=== PATIENT | male | born 1945 | race Caucasian/White ===

== ENCOUNTER 2016-11-27 01:21 | Inpatient (IN) ==
--- NOTE | 2016-11-27 02:33 | Emergency Department Note ---
Alan Null Emily, am scribing for, and in the presence of, Freddy Hidalgo MD 02: 17. Rocky Null Charles R, MD, personally performed the services described in this documentation, ascribed by Dionne Phillips in my presence, and it is both accurate and complete . Arrival - Arrival Chief Complaint: Arrhythmia/Palpitations Stated Complaint: Palpitations ED Nursing Triage Note: C/C Transfer from [facility] ER for SVT. Pt was given Adenocard 6mg and converted. Pt has history of WPW. Pt was also given ASA 325mg, Zofran 4mg, Lovenox 100mg. 18G L hand. Pt denies chest pain Mode of Arrival: Stretcher Limitations: No Limitations Source: Patient Time Seen by Provider: 11/27/16 01:52 - History of Present Illness HPI Narrative: Pt is a 71 y/o male who was transferred from [facility] ER for SVT that happened hours ago. Pt was given Adenocard 6mg and converted. Pt has history of Patsy Parkinson White syndrome. Pt was also given ASA 325mg, Zofran 4mg, Lovenox 100mg TUBE BALANCER. 18G L hand. Pt denies chest pain or tobacco usage. Pt's last visit for cardiac was at [facility] with Dr. Good but no heart cath and only talk of angioplasty. Onset (ago): hour(s) Consistency: constant Severity: mild, moderate Severity scale (1-10): 4 Quality: other (racing) Allergies/Adverse Reactions: Allergies Allergy/AdvReac Type Severity Reaction Status Date / Time No Known Allergies Allergy Unverified 11/27/16 01:34 Review of System - Review of System 12 point system: reviewed and no additional remarkable complaints except as stated - Review of System Constitutional: Absent: chills, fever Head/Ears/Nose/Throat: Absent: nasal drainage Respiratory: Absent: cough, respiratory distress, wheezing Cardiovascular: Present: palpitations. Absent: chest pain, edema, syncope Gastrointestinal: Absent: abdominal pain, nausea, vomiting Musculoskeletal: Absent: arm pain, back pain, leg pain, neck pain Skin: Absent: rash Neurological: Absent: headache, numbness, paresthesias, abnormal gait Psychiatric: Absent: anxiety Medical,Surgical,& Family Hx - Medical History Cardio: History of: Cardiac Dysrhythmia (WPW, SVT), CAD, Hypertension Endocrine: History of: Dyslipidemia - Surgical History Surgical History: noncontributory - Family History Family History: noncontributory - Social History Smoking Status: Never smoker Frequency of Alcohol Use: None Type of Drug Use: None Marital Status: Lives With:: Spouse Functional capacity: independent ambulation Exam Vital Signs: Vital Signs Temperature 97.5 F L 11/27/16 01:24 Pulse Rate 80 11/27/16 01:24 Respiratory Rate 16 11/27/16 01:24 Blood Pressure 116/77 11/27/16 01:24 O2 Sat by Pulse Oximetry 95 11/27/16 01:24 - General General appearance: alert, in no apparent distress - Head Head exam: Present: atraumatic, normocephalic - Eye Eye exam: Present: PERRL, EOMI - ENT ENT exam: Present: mucous membranes moist. Absent: mucous membranes dry - Neck Neck exam: Present: full ROM. Absent: tenderness - Chest Chest inspection: Present: symmetric chest wall rise. Absent: tenderness - Respiratory Respiratory exam: Present: normal lung sounds bilaterally. Absent: respiratory distress - Cardiovascular Cardiovascular exam: Present: irregular rhythm (slight arrhythmia), normal heart sounds - Abdominal Exam Abdominal exam: Present: soft, normal bowel sounds. Absent: tenderness - Extremities Exam Extremities exam: Present: full ROM. Absent: tenderness, pedal edema - Neurological Exam Neurological exam: Present: alert, oriented X3, CN II-XII intact. Absent: motor sensory deficit - Psychiatric Psychiatric exam: Present: normal affect - Skin Skin exam: Present: warm, dry Course - Consultations Consultation #1: Dr. Owen will admit patient Time: 02:32 Disposition Clinical Impression: Palpitations, Supraventricular tachycardia, History of Zqify-Kimbhtlze-Luyen ( WPW) syndrome Case discussed with: patient, patient's family Disposition: Still a Patient Condition: Stable Time of Disposition: 02:32
[2016-11-27] MEDS ORDERED: MAGNESIUM SULF RIDER 4 GM in PREMIX 1 EACH IV PRN (02:36)
[2016-11-27] MEDS ORDERED: ONDANSETRON 4 MG/2 ML VIAL IV PRN (02:36)
[2016-11-27] MEDS ORDERED: MORPHINE 2 MG/1 ML SYRINGE IV PRN (02:36)
[2016-11-27] MEDS ORDERED: GLUCAGON 1 MG VIAL IM PRN ×2 (02:36→16:53)
[2016-11-27] MEDS ORDERED: MAGNESIUM SULF RIDER 2 GM in PREMIX 1 EACH IV PRN (02:36)
[2016-11-27] MEDS ORDERED: DEXTROSE 50% 25 GM/50 ML VIAL IV PRN ×2 (02:36→16:53)
[2016-11-27] MEDS ORDERED: SODIUM CHLORIDE 0.9% 1,000 ML IV SCH (03:00)
[2016-11-27 04:57] LABS: Basophils # 0.1 10*3/uL (0.0-0.2); Basophils % 0.8 % (0.0-0.8); Eosinophils # 0.3 10*3/uL (0.0-0.87); Eosinophils % 3.9 % (0.00-10.9); Hemoglobin 14.9 GM/DL (14.0-18.0); Immature Granulocytes % 0.2 %; Immature Granulocytes Absolute 0.02 #; Lymphocytes # 3.1 10*3/uL (1.4-4.0); Lymphocytes % 34.8 % (21.2-54.2); Mean Corpuscular HGB Conc 33.9 GM/DL (32-36); Mean Corpuscular Hemoglobin 29 PG (27-34); Mean Corpuscular Volume 86.3 FL (87-102); Mean Platelet Volume 9.6 FL (9.6-12.0); Monocytes # 0.8 10*3/uL (0.11-0.8); Monocytes % 9.1 % (1.7-12.7); Neutrophils # 4.5 10*3/uL (1.4-7.4); Neutrophils % 51.2 % (38.7-73.9); Platelet Count 236 T/CUMM (130-400); Red Cell Distribution Width 12.8 % (9.3-17.3); White Blood Count 8.8 T/CUMM (4-12)
[2016-11-27 05:41] LABS: Albumin 3.7 G/DL (3.4-5.0); Bilirubin,Total 0.6 MG/DL (0.2-1.0); Magnesium 2.1 MG/DL (1.8-2.4); Osmolality,Calculated 291.8 MOS/KG (273-304); Potassium 4.5 MMOL/L (3.5-5.1); Risk Ratio 4.78; Thyroid Stimulating Hormone 3.26 uIU/ml (0.358-3.74); Total Protein 6.8 G/DL (6.4-8.3); VLDL CHOLESTEROL 45.2 MG/DL
[2016-11-27 05:42] LABS: CKMB % 4.3 %
[2016-11-27 05:48] LABS: Troponin I Only 1.15 NG/ML (0.00-0.045)
--- NOTE | 2016-11-27 07:36 | XRay Report ---
XR chest 1V portable Indication: Shortness of breath Comparison: Chest x-ray 11/26/2016 Technique: Portable AP chest was performed. Findings: Heart size is normal. Pulmonary vasculature appears within normal limits. No significant abnormality of the mediastinal contours demonstrated. Lungs are clear. Bones and soft tissues demonstrate no significant abnormalities. Impression: 1. No evidence of acute pathology. 11/27/2016 7:33 AM PROCEDURE INTERPRETED AT [facility] DEPARTMENT OF RADIOLOGY Final Report Signed by: Dr. Boogie Reynolds
[2016-11-27] MEDS: PANTOPRAZOLE 40 MG TABLET PO SCH (08:29)
[2016-11-27] MEDS: ASPIRIN EC 81 MG TABLET PO SCH (08:29)
--- NOTE | 2016-11-27 08:42 | EKG Report ---
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
--- NOTE | 2016-11-27 09:10 | Cardiology History & Physical ---
Assessment and Plan - Time spent with patient Time spent with patient: Greater than 30 minutes (due to assessment, plan, and documentation) (1) Supraventricular tachycardia Status: Acute Assessment and plan: See plan of care listed below. Current Visit: Yes (2) History of Sqflr-Wpkgrvqni-Odqqf (WPW) syndrome Status: Chronic Assessment and plan: See plan of care listed below. Current Visit: Yes (3) Hypertension Status: Chronic Assessment and plan: See plan of care listed below. Current Visit: Yes (4) HLD (hyperlipidemia) Status: Chronic Assessment and plan: See plan of care listed below. Current Visit: Yes (5) Diabetes mellitus Status: Chronic Assessment and plan: See plan of care listed below. Current Visit: Yes (6) GERD (gastroesophageal reflux disease) Status: Chronic Assessment and plan: See plan of care listed below. Current Visit: Yes (7) Arthritis Status: Chronic Assessment and plan: See plan of care listed below. Current Visit: Yes (8) Former smoker Status: Chronic Assessment and plan: See plan of care listed below. Current Visit: Yes History of Present Illness Chief complaint: SVT History of present illness: Gluing Machine Operator: none Mr. Malcolm is a 71 year old male with history of Patsy-Parkinson- White syndrome, hypertension, hyperlipidemia, diabetes, GERD, and arthritis. Risk factors are significant for: Hypertension, hyperlipidemia, diabetes, age, sedentary lifestyle, family history of CAD. He is a former smoker having quit in the 1970s. He has not routinely followed by cardiology and tells me the last time he saw a side show entertainer was back in the 80s or 90s. He tells me that he saw a side show entertainer at [facility] in the 1980s and last saw a side show entertainer at [facility] approximately 10 years ago. Mr. Malcolm was transferred to our facility from [facility] in [facility] for further evaluation of his SVT. Mr. Malcolm tells me that every couple months he will have an episode of palpitations that will last a few minutes and dissipate. Yesterday, he went to the dentist to have a crown replaced and developed palpitations. He told the dentist and was given nitrous oxide and he states this calmed down his palpitations for a while. He tells me that around 9:00 last night, his palpitations returned and he decided to seek further evaluation at his local emergency room. Upon arrival to [facility], he was noted to be in SVT with heart rate of 193. He was given 6 mg of Adenocard and converted to normal sinus rhythm. He denies any chest pain, shortness of breath, diaphoresis, nausea, vomiting, dizziness, lightheadedness, or syncope. He reports his symptoms have never been bad enough for him to go to the emergency room before this. He states he did gets a little dizzy whenever he was given the Adenocard but this subsided once his heart rhythm went back to normal. Home medicines include: Baby aspirin, Prilosec 20 mg daily, metformin 500 mg daily, simvastatin 20 mg p.o. daily, Celebrex 100 mg p.o. daily, and an unknown blood pressure pill that he takes every day. Initial troponin at the outlying facility was 0.17, CK-MB 6.5, CPK 197. Troponin at our facility was 1.15, CK- MB 8.1, CPK 190. Creatinine is 1.0. Lipid panel revealed: Triglycerides 226, cholesterol 153, LDL 96, HDL 32. Assessment/plan: 1. SVT - He has been in normal sinus rhythm since arriving in our facility. He has had a few occasional PVCs and PACs per review of his bargeman. He is currently on no zach blocking agents or antiarrhythmics. We will start him on a low dose beta eren and consult Dr. Leahy with Electrophysiology. 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 Previously underwent stress testing at [facility] in the 1980s which was negative. 3. Hypertension - Currently well controlled. We will continue to monitor and adjust accordingly. 4. Hyperlipidemia - Triglycerides 226, cholesterol 153, LDL 96, HDL 32. Will increase simvastatin and add Omega3 supplement. 5. Diabetes mellitus - Will start sliding scale insulin with Accuchecks ACHS and monitor. 6. GERD - Continue PPI. 7. Arthritis - Continue Celebrex. 8. Former tobacco use - Quit in . Dr. Owen to follow with further plan and addendum. Allergies Allergy/AdvReac Type Severity Reaction Status Date / Time No Known Allergies Allergy Unverified 11/27/16 01:34 Review of systems: - Constitutional: Present: As per HPI. Absent: anorexia, chills, daytime sleepiness, excessive sweating, fever(s), frequent falls, headache(s), increased appetite, lethargy, malaise, night sweats, stops breathing during sleep, weakness, weight gain, weight loss, fatigue. - EENT Eyes: Present: As per HPI. Absent: blurry vision, diplopia, loss of vision Ears: Present: As per HPI. Absent: decreased hearing, ear discharge, ear pain Nose, mouth and throat: Present: As per HPI. Absent: dysphagia, epistaxis, headache(s), hoarseness, lip swelling, nasal congestion, neck mass, neck pain, sinus pressure, sore throat, throat swelling, tongue swelling, vertigo - Cardiovascular: Present: palpitations, as per HPI. Absent: chest pain at rest , chest pain with activity, dyspnea, dyspnea on exertion, edema, claudication, diaphoresis, radiating jaw, neck or arm pain, lightheadedness, orthopnea, PND - Respiratory: Present: as per HPI. Absent: dyspnea, dyspnea on exertion, cough , hemoptysis, wheezing, snoring, pain on inspiration - Gastrointestinal: Present: As per HPI. Absent: abdominal pain, bloating, change in bowel habits, constipation, diarrhea, heartburn, hematemesis, hematochezia, loose stools, melena, nausea, vomiting - Genitourinary: Present: As per HPI. Absent: difficulty urinating, dysuria, flank pain, hematuria, nocturia, urinary frequency, urinary incontinence - Musculoskeletal: Present: As per HPI. Absent: arthralgias, back pain, joint swelling, limited range of motion, muscle cramps, muscle weakness, myalgias - Neurological: Present: As per HPI. Absent: abnormal gait, abnormal speech, behavioral changes, confusion, convulsions, disequilibrium, dizziness, focal weakness, frequent falls, headache(s), memory loss, numbness, paresthesias, radicular pain, syncope, tremor(s) - Psychiatric: Present: As per HPI. Absent: anxiety, confusion, depression, panic attacks - Endocrine: Present: As per HPI. Absent: cold intolerance, fatigue, heat intolerance, polydipsia, polyphagia - Hematologic/Lymphatic: Present: As per HPI. Absent: easy bleeding, easy bruising, lymphadenopathy Medical,Surgical,& Family Hx - Medical History Cardio: History of: Cardiac Dysrhythmia (WPW, SVT), CAD, Hypertension Endocrine: History of: Diabetes Mellitus (NIDDM), Dyslipidemia Gastrointestinal: History of: GERD - Family History Family History: Reports;: Family Heart Disease - Social History Smoking Status: Former smoker (quit in .) Frequency of Alcohol Use: None Type of Drug Use: None Marital Status: Lives With:: Spouse Functional capacity: independent ambulation Cardiology Physical Exam - Constitutional Vitals: Vital Signs Temp Pulse Resp BP Pulse Ox 97.7 F 71 14 105/72 95 11/27/16 07:15 11/27/16 07:15 11/27/16 07:15 11/27/16 07:15 11/27/16 01:24 Intake and Output 11/26/16 11/27/16 11/27/16 22:59 06:59 14:59 Other: Weight 212 lb 6.4 oz Exam: General appearance: Pleasant and cooperative. Normal weight, no acute distress. - Head Head exam: Present: normal inspection, normocephalic, atraumatic. Absent: hematoma, laceration - Eye Eye exam: Present: EOMI. Absent: conjunctival injection, nystagmus, periorbital swelling, scleral icterus, laceration to eyelids Pupils: Present: PERRL. Absent: constricted, dilated, fixed, irregular, unequal - ENT ENT exam: Present: normal exam, normal external ear exam - Neck Neck exam: Present: normal inspection. Absent: lymphadenopathy, meningismus, tenderness, thyromegaly - Respiratory Respiratory exam: Present: clear to auscultation bilaterally. Absent: accessory muscle use, chest wall tenderness - Cardiovascular Cardiovascular exam: Present: regular rate and rhythm. Absent: carotid bruit, gallop, JVD, rubs, murmur - GI/Abdominal GI/Abdominal exam: Present: normal bowel sounds, soft. Absent: distended, firm , guarding, hernia, mass, tenderness, rebound. - Extremities Exam Extremities exam: Present: normal inspection, normal capillary refill. Upper extremity pulses 2+. Lower extremity pulses 2+. Absent: calf tenderness, edema -Musculoskeletal Exam Musculoskeletal: Present: No Fluid Collection, No Pain, Normal Range of Motion - Back Exam Back exam: Present: normal inspection. Absent: muscle spasm, vertebral tenderness - Neurological Exam Neurological exam: Present: alert, oriented X3, grossly intact without resting or essential tremor - Psychiatric Psychiatric exam: Present: normal affect, normal mood - Skin Skin exam: Present: normal color, warm, dry, intact. Absent: cyanosis, diaphoretic, rash, urticaria Result/EKG - Labs CBC & BMP: 11/27/16 04:33 11/27/16 04:33 Lab Results: I have reviewed the past 24 hour labs Labs: Laboratory Results - last 24 hr 11/27/16 11/27/16 11/27/16 04:33 04:33 04:33 WBC 8.8 RBC 5.10 Hgb 14.9 Hct 44.0 MCV 86.3 L MCH 29 MCHC 33.9 RDW 12.8 Plt Count 236 MPV 9.6 Neut % (Auto) 51.2 Lymph % (Auto) 34.8 [place] % (Auto) 9.1 Eos % (Auto) 3.9 Baso % (Auto) 0.8 Neut # (Auto) 4.5 Lymph # (Auto) 3.1 [place] # (Auto) 0.8 Eos # (Auto) 0.3 Baso # (Auto) 0.1 Immature Gran % 0.2 Nucleated RBC % 0.0 Immature Gran # 0.02 Nucleated RBCs # 0.00 Sodium 144 Potassium 4.5 Chloride 111 H Carbon Dioxide 24 Anion Gap 13.5 BUN 24 H Creatinine 1.00 GFR Calculation 96 BUN/Creatinine Ratio 24.00 H Glucose 128 H Calculated Osmolality 291.8 Calcium 9.0 Magnesium 2.1 Total Bilirubin 0.60 AST 38 H ALT 53 Alkaline Phosphatase 78 Total Creatine Kinase 190 CK-MB (CK-2) 8.1 H CK and CKMB Interp 4.3 Troponin I 1.150 H B-Natriuretic Peptide Total Protein 6.8 Albumin 3.7 Globulin 3.1 Albumin/Globulin Ratio 1.1 Triglycerides 226 H Cholesterol 153 LDL Cholesterol 96.0 VLDL Cholesterol 45.2 HDL Cholesterol 32 L Heart Disease Risk Ratio 4.78 TSH 3rd Generation 3.260 11/27/16 04:33 WBC RBC Hgb Hct MCV MCH MCHC RDW Plt Count MPV Neut % (Auto) Lymph % (Auto) [place] % (Auto) Eos % (Auto) Baso % (Auto) Neut # (Auto) Lymph # (Auto) [place] # (Auto) Eos # (Auto) Baso # (Auto) Immature Gran % Nucleated RBC % Immature Gran # Nucleated RBCs # Sodium Potassium Chloride Carbon Dioxide Anion Gap BUN Creatinine GFR Calculation BUN/Creatinine Ratio Glucose Calculated Osmolality Calcium Magnesium Total Bilirubin AST ALT Alkaline Phosphatase Total Creatine Kinase CK-MB (CK-2) CK and CKMB Interp Troponin I B-Natriuretic Peptide 153 H Total Protein Albumin Globulin Albumin/Globulin Ratio Triglycerides Cholesterol LDL Cholesterol VLDL Cholesterol HDL Cholesterol Heart Disease Risk Ratio TSH 3rd Generation - EKG EKG results: interpreted by me, sinus rhythm (with occasional PVC/PAC)
--- NOTE | 2016-11-27 11:18 | Electrophysiology Consultation ---
History of Present Illness - Data of Consult Patient: new to practice Consult date: 11/27/16 Requesting Physician: Anirudh Owen - Consult Narrative Reason for consult: SVT, WPW History of present illness: Mr. Malcolm is a 71 year old male, with history of palpitations, which started after he lifted the , after the [place] initially, these were infrequent, lasted for minutes. 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 Yesterday, he went to a dentist for crown placement and developed palpitations before. These were initially tolerable, he underwent the procedure, but the palpitations became worse, and then lasted for hours and he developed substernal chest discomfort. Eventually, he went to the emergency room and was diagnosed with irregular SVT at 195 beats I am. This probably transformed to sinus rhythm with IV adenosine. The SVT is narrow QRS, long RP, regular. His EKG currently shows normal UT interval, without manifest preexcitation. There are still diffuse report abnormalities, ST depression. The chest pain resolved. Initial cardiac biomarkers were borderline, troponin was 0.1. He is not having chest pain right now. He has otherwise no exertional limitation and is quite active. No syncope. There is history of hypertension, blood pressure was normal. Hyperlipidemia, with normal lipid panel. Also, history of type 2 diabetes mellitus, nonfasting blood sugar was mildly elevated on admission. CC: Anirudh Owen MD - Home Medications and Allergies Allergies/Adverse Reactions: Allergies Allergy/AdvReac Type Severity Reaction Status Date / Time No Known Allergies Allergy Unverified 11/27/16 01:34 Medical,Surgical,& Family Hx - Medical History Cardio: History of: Cardiac Dysrhythmia (WPW, SVT), CAD, Hypertension Endocrine: History of: Diabetes Mellitus (NIDDM), Dyslipidemia Gastrointestinal: History of: GERD - Family History Family History: Reports;: Family Heart Disease - Social History Smoking Status: Former smoker (quit in 1970s.) Frequency of Alcohol Use: None Type of Drug Use: None 12 point system: reviewed and no additional remarkable complaints except as stated Exam - Constitutional Vitals: Period Temp Pulse Resp BP Sys/Renee Pulse Ox Last 24 Hr 97.0 F-97.7 F 70-80 14-18 105-116/66-77 95 General appearance: normal weight, no acute distress, over weight - Head Head exam: Present: normal inspection, normocephalic - Eye Eye exam: Absent: conjunctival injection, scleral icterus Pupils: Absent: dilated - ENT ENT exam: Present: normal external ear exam - Neck Neck exam: Present: normal inspection - Respiratory Respiratory exam: Present: clear to auscultation bilaterally - Cardiovascular Cardiovascular exam: Present: regular rate and rhythm, systolic murmur - GI/Abdominal GI/Abdominal exam: Present: normal bowel sounds. Absent: distended - Extremities Exam Extremities exam: Present: normal inspection, normal capillary refill. Absent: edema - Back Exam Back exam: Present: normal inspection - Neurological Exam Neurological exam: Present: alert, oriented X3 - Psychiatric Psychiatric exam: Present: normal affect, normal mood - Skin Skin exam: Present: normal color, warm. Absent: cyanosis Results - Labs CBC & BMP: 11/27/16 04:33 11/27/16 04:33 Lab Results: I have reviewed the past 24 hour labs Assessment and Plan (1) Supraventricular tachycardia Status: Acute Assessment and plan: 71-year-old male, with history of PSVT, suspected WPW, without manifest preexcitation his current EKG. Was admitted with persistent SVT, mild demand ischemia in context of SVT/RVR, lasting for hours. Otherwise, no exertional angina. Multiple CAD risk factors, hypertension, hyperlipidemia, mild type 2 diabetes mellitus, past smoker, positive family history. -Echo. -Stress test. Rule out CAD. Assess preexcitation with elevated heart rate. If he does have significant CAD, I suggest to proceed with LHC, before addressing his SVT. His heart rate was markedly elevated for hours, I suspect demand ischemia. -Discussed risks and benefits of management options for PSVT. We plan to proceed with EP study/ablation in conscious sedation Wednesday. -Unless he has significant CAD or CMP, over the weekend, I suggest to avoid CCB/ BB, to avoid interference with the EP study. -Keep on telemetry Current Visit: Yes (2) History of Gqklq-Cxijugnwr-Fnqtg (WPW) syndrome Status: Chronic Current Visit: Yes (3) Hypertension Status: Chronic Current Visit: Yes (4) HLD (hyperlipidemia) Status: Chronic Current Visit: Yes (5) Diabetes mellitus Status: Chronic Current Visit: Yes (6) GERD (gastroesophageal reflux disease) Status: Chronic Current Visit: Yes (7) Arthritis Status: Chronic Current Visit: Yes (8) Former smoker Status: Chronic Current Visit: Yes
[2016-11-27] MEDS: CARVEDILOL 3.125 MG TABLET PO SCH ×2 (11:22→20:51)
[2016-11-27 11:28] LABS: CKMB % 3.8 %
[2016-11-27 11:30] LABS: Troponin I Only 0.947 NG/ML (0.00-0.045)
--- NOTE | 2016-11-27 16:10 | Event Note ---
Patient underwent nuclear stress test without difficulty. THR achieved in Stage II of [place]oy Protocol. Patient was noted to have mild ST depression, but no other acute EKG changes. No chest pain, heaviness, or tightness. No dizziness, lightheadedness, or syncope. He did have mild WALLACE. Blood pressure responded appropriately. Patient now to nuclear medicine for final scan.
--- NOTE | 2016-11-27 17:31 | ECHO Report ---
Hernán Malcolm Exam Date: 11/27/2016 13:32 Referring Physician: Technologist: sathish Alexis ARDMS, RVT Age: 71 Ht (in): 71 Wt (lb): 212 Gender: M Exam Location: [facility] Echo Indications: Essential (primary) hypertension, Palpitations, Supraventriculartachycardia, GERD, Diabetes, Elevated troponin, WPW BP: 105 / 72 HR: 64 Rhythm: Sinus Technical Quality: IMPRESSIONS Normal left ventricular cavity size. Normal left ventricular wall thickness. Normal systolic function. Left ventricular ejection fraction is estimated at 60%. Normal diastolic function. No significant valvular abnormalities. MEASUREMENTS (Male / Female) Normal Values 2D ECHO LV Diastolic Diameter PLAX 4.3 cm 4.2 - 5.9 / 3.9 - 5.3 cm LV Systolic Diameter PLAX 3.4 cm LV Fractional Shortening PLAX 20.9 % IVS Diastolic Thickness 1.1 cm 0.6 - 1.0 / 0.6 - 0.9 cm LVPW Diastolic Thickness 1.2 cm 0.6 - 1.0 / 0.6 - 0.9 cm RV Internal Dim ED PLAX 3.9 cm Aortic Root Diameter 3.2 cm LA Systolic Diameter LX 4.1 cm 3.0 - 4.0 / 2.7 - 3.8 cm DOPPLER TR Peak Velocity 257.0 cm/s TR Peak Gradient 26.4 mmHg FINDINGS Left Ventricle Normal left ventricular cavity size. Normal left ventricular wall thickness. Normal systolic function. Left ventricular ejection fraction is estimated at 60%. Normal diastolic function. Right Ventricle The right ventricle is normal in size and function. Right Atrium The right atrium is normal in size. Left Atrium The left atrium is normal in size. Mitral Valve Morphologically normal mitral valve. Trace mitral valve regurgitation. Aortic Valve Structurally normal aortic valve, without stenosis or insufficiency. Tricuspid Valve Morphologically normal tricuspid valve. Trace tricuspid valve regurgitation. Tricuspid regurgitation velocities suggest a PAP of 36 mmHg. Pulmonic Valve Morphologically normal pulmonic valve without significant stenosis. There is no pulmonic regurgitation. Pericardium Normal pericardium without effusion. Aorta Normal ascending aorta dimension. Tulio Leahy (Electronically Signed) Final Date: 27 November 2016 16:50
[2016-11-27 19:18] LABS: CKMB % 3.2 %
[2016-11-27 19:19] LABS: Troponin I Only 0.686 NG/ML (0.00-0.045)
[2016-11-27] MEDS: ENOXAPARIN 40 MG/0.4 ML SYRINGE SUBCUT SCH (20:51)
[2016-11-28 05:56] LABS: Basophils # 0.1 10*3/uL (0.0-0.2); Basophils % 0.8 % (0.0-0.8); Eosinophils # 0.3 10*3/uL (0.0-0.87); Eosinophils % 3.9 % (0.00-10.9); Hematocrit 43.3 VOL% (42.0-52.0); Hemoglobin 14.9 GM/DL (14.0-18.0); Immature Granulocytes % 0.4 %; Immature Granulocytes Absolute 0.03 #; Lymphocytes # 2.8 10*3/uL (1.4-4.0); Lymphocytes % 33.3 % (21.2-54.2); Mean Corpuscular HGB Conc 34.4 GM/DL (32-36); Mean Corpuscular Hemoglobin 30 PG (27-34); Mean Corpuscular Volume 86.1 FL (87-102); Mean Platelet Volume 9.6 FL (9.6-12.0); Monocytes # 0.7 10*3/uL (0.11-0.8); Monocytes % 7.7 % (1.7-12.7); Neutrophils # 4.6 10*3/uL (1.4-7.4); Neutrophils % 53.9 % (38.7-73.9); Platelet Count 220 T/CUMM (130-400); Red Blood Count 5.03 MC/CUMM (3.8-5.5); Red Cell Distribution Width 12.7 % (9.3-17.3); White Blood Count 8.4 T/CUMM (4-12)
[2016-11-28 06:20] LABS: Calcium 8.5 MG/DL (8.5-10.1); Magnesium 2.1 MG/DL (1.8-2.4); Osmolality,Calculated 284.3 MOS/KG (273-304); Potassium 4.3 MMOL/L (3.5-5.1)
[2016-11-28] MEDS: PANTOPRAZOLE 40 MG TABLET PO SCH (09:29)
[2016-11-28] MEDS: CARVEDILOL 3.125 MG TABLET PO SCH (09:29)
[2016-11-28] MEDS: ASPIRIN EC 81 MG TABLET PO SCH (09:29)
--- NOTE | 2016-11-28 10:08 | EKG Report ---
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
--- NOTE | 2016-11-28 11:23 | Electrophysiology Progress Not ---
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 Was admitted with persistent SVT, mild demand ischemia in context of SVT/RVR, lasting for hours. Otherwise, no exertional angina. Multiple CAD risk factors, hypertension, hyperlipidemia, mild type 2 diabetes mellitus, past smoker, positive family history. No structural disease on echo, stress test showed no ischemia. Elevated troponin was likely due to demand ischemia, prominent RVR with SVT for hours. -Discussed risks and benefits of management options for symptomatic PSVT. -We will proceed with EP study/SVT ablation on Wednesday, in conscious sedation. -N.p.o. after midnight on Wednesday -Hold beta-eren Current Visit: Yes (2) History of Ndgjb-Hdirdzawi-Sunpl (WPW) syndrome Status: Chronic Current Visit: Yes (3) Hypertension Status: Chronic Current Visit: Yes (4) HLD (hyperlipidemia) Status: Chronic Current Visit: Yes (5) Diabetes mellitus Status: Chronic Current Visit: Yes (6) GERD (gastroesophageal reflux disease) Status: Chronic Current Visit: Yes (7) Arthritis Status: Chronic Current Visit: Yes (8) Former smoker Status: Chronic Current Visit: Yes Electrophysiology Subjective Interval history: He is feeling fine. Stress test showed no significant ischemia. No significant cardiomyopathy on echo. No arrhythmia on telemetry. Exam - Constitutional Vitals: Period Temp Pulse Resp BP Sys/Renee Pulse Ox Last 24 Hr 97.3 F-98.4 F 59-78 16-20 118-127/65-74 97-100 General appearance: normal weight, over weight - Head Head exam: Present: normal inspection, normocephalic - Eye Eye exam: Absent: conjunctival injection, scleral icterus Pupils: Absent: dilated - ENT ENT exam: Present: normal external ear exam - Neck Neck exam: Present: normal inspection - Respiratory Respiratory exam: Present: clear to auscultation bilaterally. Absent: accessory muscle use - Cardiovascular Cardiovascular exam: Present: regular rate and rhythm. Absent: JVD - GI/Abdominal GI/Abdominal exam: Present: normal bowel sounds. Absent: distended - Extremities Exam Extremities exam: Present: normal inspection, normal capillary refill. Absent: edema - Back Exam Back exam: Present: normal inspection - Neurological Exam Neurological exam: Present: alert, oriented X3 - Psychiatric Psychiatric exam: Present: normal affect, normal mood - Skin Skin exam: Present: normal color, warm. Absent: cyanosis Results - Labs CBC & BMP: 11/28/16 05:12 11/28/16 05:12 Lab Results: I have reviewed the past 24 hour labs
[2016-11-28] MEDS: POLYETHYLENE GLYCOL POWDER 17 GM PACK PO PRN (12:49)
--- NOTE | 2016-11-28 16:32 | Cardiology Progress Note ---
Assessment and Plan - Time spent with patient Time spent with patient: Greater than 30 minutes (1) Supraventricular tachycardia Status: Acute Assessment and plan: Echo and stress test show structurally normal heart--he does not need a heart catheterization/coronary angiogram at this point Will be for attempted ablation of non-manifest [at least at this point it seems to be concealed ]bypass tract on Wednesday We will give a trial of some Metamucil and MiraLAX today Can use off stool softeners if needed Probably his mild troponin rise was related to increased demand/supply mismatch from RVR with SVT I conferred care with Dr. Staley, his contracting executive I discussed the plan with the patient and he agrees with the plan Current Visit: Yes (2) Constipation Status: Acute Current Visit: Yes (3) Palpitations Status: Acute Current Visit: Yes (4) Diabetes mellitus Status: Chronic Current Visit: Yes (5) Former smoker Status: Chronic Current Visit: Yes (6) GERD (gastroesophageal reflux disease) Status: Chronic Current Visit: Yes (7) HLD (hyperlipidemia) Status: Chronic Current Visit: Yes (8) History of Ohvei-Dzglpnihk-Oddqr (WPW) syndrome Status: Chronic Current Visit: Yes (9) Hypertension Status: Chronic Current Visit: Yes Cardiology - PN: Subj Interval history: No chest pain or shortness of breath. Does complain of some constipation. Has not felt his heart racing. It typically happens every 2 or 3 months but occasionally can happen every few days. Exam (Progress Note) - Constitutional Vitals: Period Temp Pulse Resp BP Sys/Renee Pulse Ox Last 24 Hr 97.2 F-98.4 F 59-78 16-20 111-127/65-74 97-100 Exam: HEENT: Pupils equal, reactive to light and accommodation Neck: NoJVD or bruit Lungs clear to auscultation Heart: Regular rhythm rate with normal S1 and S2. Apical S4 Abdomen: No hepatosplenomegaly Spine/extremities: No clubbing, cyanosis, or edema Neuro: Nonfocal Psych: No depression or anxiety Result/EKG - Labs CBC & BMP: 11/28/16 05:12 11/28/16 05:12 Lab Results: I have reviewed the past 24 hour labs Labs: Laboratory Results - last 24 hr 11/27/16 11/27/16 11/28/16 18:28 20:59 05:12 WBC 8.4 RBC 5.03 Hgb 14.9 Hct 43.3 MCV 86.1 L MCH 30 MCHC 34.4 RDW 12.7 Plt Count 220 MPV 9.6 Neut % (Auto) 53.9 Lymph % (Auto) 33.3 [place] % (Auto) 7.7 Eos % (Auto) 3.9 Baso % (Auto) 0.8 Neut # (Auto) 4.6 Lymph # (Auto) 2.8 [place] # (Auto) 0.7 Eos # (Auto) 0.3 Baso # (Auto) 0.1 Immature Gran % 0.4 Nucleated RBC % 0.0 Immature Gran # 0.03 Nucleated RBCs # 0.00 Sodium Potassium Chloride Carbon Dioxide Anion Gap BUN Creatinine GFR Calculation BUN/Creatinine Ratio Glucose POC Glucose 113 H Calculated Osmolality Calcium Magnesium Total Creatine Kinase 163 CK-MB (CK-2) 5.2 H CK and CKMB Interp 3.2 Troponin I 0.686 H D 11/28/16 11/28/16 11/28/16 05:12 08:06 15:39 WBC RBC Hgb Hct MCV MCH MCHC RDW Plt Count MPV Neut % (Auto) Lymph % (Auto) [place] % (Auto) Eos % (Auto) Baso % (Auto) Neut # (Auto) Lymph # (Auto) [place] # (Auto) Eos # (Auto) Baso # (Auto) Immature Gran % Nucleated RBC % Immature Gran # Nucleated RBCs # Sodium 141 Potassium 4.3 Chloride 107 Carbon Dioxide 23 Anion Gap 15.3 H BUN 19 H Creatinine 0.90 GFR Calculation 109 BUN/Creatinine Ratio 21.00 H Glucose 132 H POC Glucose 137 H 167 H Calculated Osmolality 284.3 Calcium 8.5 Magnesium 2.1 Total Creatine Kinase CK-MB (CK-2) CK and CKMB Interp Troponin I - EKG EKG results: interpreted by me
[2016-11-28] MEDS: PSYLLIUM POWDER 3.7 GM/PACK PO PRN (21:13)
[2016-11-28] MEDS: ENOXAPARIN 40 MG/0.4 ML SYRINGE SUBCUT SCH (21:14)
[2016-11-29 06:03] LABS: Basophils # 0.1 10*3/uL (0.0-0.2); Basophils % 1.1 % (0.0-0.8); Eosinophils # 0.3 10*3/uL (0.0-0.87); Eosinophils % 3.8 % (0.00-10.9); Hematocrit 42.8 VOL% (42.0-52.0); Hemoglobin 14.7 GM/DL (14.0-18.0); Immature Granulocytes % 0.3 %; Immature Granulocytes Absolute 0.02 #; Lymphocytes # 2.1 10*3/uL (1.4-4.0); Lymphocytes % 29.1 % (21.2-54.2); Mean Corpuscular HGB Conc 34.3 GM/DL (32-36); Mean Corpuscular Hemoglobin 30 PG (27-34); Mean Corpuscular Volume 85.9 FL (87-102); Monocytes # 0.6 10*3/uL (0.11-0.8); Monocytes % 8.5 % (1.7-12.7); Neutrophils # 4.2 10*3/uL (1.4-7.4); Neutrophils % 57.2 % (38.7-73.9); Platelet Count 209 T/CUMM (130-400); Red Blood Count 4.98 MC/CUMM (3.8-5.5); Red Cell Distribution Width 12.7 % (9.3-17.3); White Blood Count 7.3 T/CUMM (4-12)
[2016-11-29 06:13] LABS: Calcium 8.3 MG/DL (8.5-10.1); Magnesium 2.2 MG/DL (1.8-2.4); Osmolality,Calculated 282.4 MOS/KG (273-304); Potassium 4.1 MMOL/L (3.5-5.1)
[2016-11-29] MEDS: PANTOPRAZOLE 40 MG TABLET PO SCH (08:42)
[2016-11-29] MEDS: ASPIRIN EC 81 MG TABLET PO SCH (08:43)
[2016-11-29] MEDS: POLYETHYLENE GLYCOL POWDER 17 GM PACK PO PRN (08:43)
--- NOTE | 2016-11-29 11:08 | Electrophysiology Progress Not ---
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 Was admitted with persistent SVT, mild demand ischemia in context of SVT/RVR, lasting for hours. Otherwise, no exertional angina. Multiple CAD risk factors, hypertension, hyperlipidemia, mild type 2 diabetes mellitus, past smoker, positive family history. No structural disease on echo, stress test showed no ischemia. Elevated troponin was likely due to demand ischemia, prominent RVR with SVT for hours. -Discussed risks and benefits of management options for symptomatic PSVT. -We will proceed with EP study/SVT ablation on Wednesday, in conscious sedation. -N.p.o. after midnight on Wednesday -Hold beta-eren Current Visit: Yes (2) History of Fgaxd-Xmdlizebs-Yqhtk (WPW) syndrome Status: Chronic Current Visit: Yes (3) Hypertension Status: Chronic Current Visit: Yes (4) HLD (hyperlipidemia) Status: Chronic Current Visit: Yes (5) Diabetes mellitus Status: Chronic Current Visit: Yes (6) GERD (gastroesophageal reflux disease) Status: Chronic Current Visit: Yes (7) Arthritis Status: Chronic Current Visit: Yes (8) Former smoker Status: Chronic Current Visit: Yes Electrophysiology Subjective Interval history: He is feeling fine. No recurrence of palpitations Exam - Constitutional Vitals: Period Temp Pulse Resp BP Sys/Renee Pulse Ox Last 24 Hr 97.4 F-98 F 63-72 18-20 122-142/68-78 97-99 General appearance: normal weight, over weight - Head Head exam: Present: normal inspection, normocephalic - Eye Eye exam: Absent: conjunctival injection, scleral icterus Pupils: Absent: dilated - ENT ENT exam: Present: normal external ear exam - Neck Neck exam: Present: normal inspection - Respiratory Respiratory exam: Present: clear to auscultation bilaterally. Absent: accessory muscle use - Cardiovascular Cardiovascular exam: Present: regular rate and rhythm. Absent: JVD - GI/Abdominal GI/Abdominal exam: Present: normal bowel sounds. Absent: distended - Extremities Exam Extremities exam: Present: normal inspection, normal capillary refill. Absent: edema - Back Exam Back exam: Present: normal inspection - Neurological Exam Neurological exam: Present: alert, oriented X3 - Psychiatric Psychiatric exam: Present: normal affect, normal mood - Skin Skin exam: Present: normal color, warm. Absent: cyanosis Results - Labs CBC & BMP: 11/29/16 04:57 11/29/16 04:57 Lab Results: I have reviewed the past 24 hour labs
[2016-11-29] MEDS: PSYLLIUM POWDER 3.7 GM/PACK PO PRN (16:03)
--- NOTE | 2016-11-29 18:12 | Cardiology Progress Note ---
Assessment and Plan (1) Supraventricular tachycardia Status: Acute Assessment and plan: Echo and stress test show structurally normal heart--he does not need a heart catheterization/coronary angiogram at this point Will be for attempted ablation of non-manifest [at least at this point it seems to be concealed ]bypass tract on Wednesday We will give a trial of some Metamucil and MiraLAX today Can use off stool softeners if needed Probably his mild troponin rise was related to increased demand/supply mismatch from RVR with SVT I conferred care with Dr. Staley, his bar machine operator multiple spindle I discussed the plan with the patient and he agrees with the plan 11/29/16: Doing okay off the beta eren Treating constipation no arrhythmias on monitoring 4 ablation of the concealed bypass tract of WPW tomorrow by Dr. Tulio Staley Potentially will be cured of this rhythm abnormality Current Visit: Yes (2) Constipation Status: Acute Current Visit: Yes (3) Palpitations Status: Acute Current Visit: Yes (4) Diabetes mellitus Status: Chronic Current Visit: Yes (5) Former smoker Status: Chronic Current Visit: Yes (6) GERD (gastroesophageal reflux disease) Status: Chronic Current Visit: Yes (7) HLD (hyperlipidemia) Status: Chronic Current Visit: Yes (8) History of Xjkkt-Pxcadatrv-Kztbx (WPW) syndrome Status: Chronic Current Visit: Yes (9) Hypertension Status: Chronic Current Visit: Yes Cardiology - PN: Subj Interval history: no chest pain, shortness breath or tachycardia palpitations. Exam (Progress Note) - Constitutional Vitals: Period Temp Pulse Resp BP Sys/Renee Pulse Ox Last 24 Hr 97.4 F-98.2 F 60-72 18-20 122-142/66-86 96-99 Exam: HEENT: Pupils equal, reactive to light and accommodation Neck: NoJVD or bruit Lungs clear to auscultation Heart: Regular rhythm rate with normal S1 and S2. Apical S4 Abdomen: No hepatosplenomegaly Spine/extremities: No clubbing, cyanosis, or edema Neuro: Nonfocal Psych: No depression or anxiety Result/EKG - Labs CBC & BMP: 11/29/16 04:57 11/29/16 04:57 Lab Results: I have reviewed the past 24 hour labs Labs: Laboratory Results - last 24 hr 11/29/16 11/29/16 11/29/16 04:57 04:57 07:36 WBC 7.3 RBC 4.98 Hgb 14.7 Hct 42.8 MCV 85.9 L MCH 30 MCHC 34.3 RDW 12.7 Plt Count 209 MPV 10.0 Neut % (Auto) 57.2 Lymph % (Auto) 29.1 [place] % (Auto) 8.5 Eos % (Auto) 3.8 Baso % (Auto) 1.1 H Neut # (Auto) 4.2 Lymph # (Auto) 2.1 [place] # (Auto) 0.6 Eos # (Auto) 0.3 Baso # (Auto) 0.1 Immature Gran % 0.3 Nucleated RBC % 0.0 Immature Gran # 0.02 Nucleated RBCs # 0.00 Sodium 140 Potassium 4.1 Chloride 108 H Carbon Dioxide 21 Anion Gap 15.1 H BUN 18 Creatinine 0.80 GFR Calculation 115 BUN/Creatinine Ratio 22.00 H Glucose 141 H POC Glucose 134 H Calculated Osmolality 282.4 Calcium 8.3 L Magnesium 2.2 11/29/16 16:03 WBC RBC Hgb Hct MCV MCH MCHC RDW Plt Count MPV Neut % (Auto) Lymph % (Auto) [place] % (Auto) Eos % (Auto) Baso % (Auto) Neut # (Auto) Lymph # (Auto) [place] # (Auto) Eos # (Auto) Baso # (Auto) Immature Gran % Nucleated RBC % Immature Gran # Nucleated RBCs # Sodium Potassium Chloride Carbon Dioxide Anion Gap BUN Creatinine GFR Calculation BUN/Creatinine Ratio Glucose POC Glucose 89 Calculated Osmolality Calcium Magnesium - EKG EKG results: interpreted by me
[2016-11-29] MEDS: ENOXAPARIN 40 MG/0.4 ML SYRINGE SUBCUT SCH (20:30)
[2016-11-30 05:13] LABS: Basophils # 0.1 10*3/uL (0.0-0.2); Basophils % 1.2 % (0.0-0.8); Eosinophils # 0.2 10*3/uL (0.0-0.87); Eosinophils % 2.8 % (0.00-10.9); Hematocrit 44.4 VOL% (42.0-52.0); Hemoglobin 15.3 GM/DL (14.0-18.0); Immature Granulocytes % 0.2 %; Immature Granulocytes Absolute 0.02 #; Lymphocytes # 2.6 10*3/uL (1.4-4.0); Lymphocytes % 31.1 % (21.2-54.2); Mean Corpuscular HGB Conc 34.5 GM/DL (32-36); Mean Corpuscular Hemoglobin 29 PG (27-34); Mean Corpuscular Volume 84.4 FL (87-102); Mean Platelet Volume 9.6 FL (9.6-12.0); Monocytes # 0.6 10*3/uL (0.11-0.8); Monocytes % 7.5 % (1.7-12.7); Neutrophils # 4.9 10*3/uL (1.4-7.4); Neutrophils % 57.2 % (38.7-73.9); Platelet Count 240 T/CUMM (130-400); Red Blood Count 5.26 MC/CUMM (3.8-5.5); Red Cell Distribution Width 12.6 % (9.3-17.3); White Blood Count 8.5 T/CUMM (4-12)
[2016-11-30 05:54] LABS: Calcium 8.6 MG/DL (8.5-10.1); Magnesium 2.4 MG/DL (1.8-2.4); Osmolality,Calculated 283.3 MOS/KG (273-304); Potassium 4.1 MMOL/L (3.5-5.1)
--- NOTE | 2016-11-30 07:09 | Nuclear Medicine Report ---
DATE OF STUDY: 11/27/2016 TREADMILL/CARDIOLITE REFERRING PHYSICIAN: Anirudh Owen MD. PRIMARY CARE PHYSICIAN: ? Dr. Sekou Horne. HISTORY: A 71-year-old man who presents with PSVT related to WPW. He had mild chest pain with it. His troponin is mildly abnormal. It is thought the rapid heart rate and SVT caused some subendocardi al ischemia, resulting in the mild troponin rise. He is being considered for ablation of his bypass tract. Evaluate for evidence of ischemia. STRESS SPECT CARDIOLITE STUDY WITH GATING: The patient was intravenously injected with 10 mCi of Crys hnetium Cardiolite. He underwent rest study. He then exercised on a Eloy protocol for about 6 angel anita. He achieved a peak heart rate of 140 beats per minute. At peak exercise, he received 30 mCi of Technetium Cardiolite. He then walked an additional minute, rested, and then had the stress study. On the post "stress" images, there was no increased lung uptake, cardiac size was normal, and RV upta ke of Thallium was normal. On the cine images, there was normal homogeneous uptake of Thallium in al l myocardial segments. In the GOLDMAN view, there is inferior thinning, in the AUSTRALIAN view there is inferoseptal thinning, and in t he extreme AUSTRALIAN view, there is inferoposterior thinning thought to be due to RV, extracardiac tissue, and diaphragmatic attenuation, respectively. On the delayed images, there was normal washout. IMPRESSION: 1. NORMAL STRESS SPECT CARDIOLITE STUDY AT A MODERATE HIGH WORKLOAD AND HEART RATE FOR AGE. THIS ST UDY WOULD GO AGAINST MAJOR ISCHEMIA BEING PRESENT. 2. THE GATED SPECT IMAGES REVEALED NORMAL GLOBAL SYSTOLIC FUNCTION. THE OVERALL EJECTION FRACTION I S 55%. 3. REGIONAL WALL MOTION ANALYSIS WAS NORMAL. 4. NO PRIOR STUDY IS AVAILABLE FOR COMPARISON. ADDENDUM: 1. Of note, the gated SPECT images in this study revealed normal global systolic function. Overall ejection fraction is 55% to 65%. There is no regional wall motion abnormality. 2. The result of study goes against ischemia as being present. I suspect his mild troponin rise was related to the prolonged rapid heart rate, about 2 hours. He will be treated medically to lessen th e chances of developing CAD. I doubt he has major CAD at this time. An echocardiogram was done to e valuate for structural heart disease. He will be for ablation of his bypass tract by Dr. Tulio Leahy in the near future. Procedure performed and interpreted at [facility] Department of Radiology. CC: Dr. Sekou Horne.
--- NOTE | 2016-11-30 07:37 | EKG Report ---
Stationary ECG Study [facility] Test Date: 11/30/2016 7:36:30 AM Pat Name: ELBA DURAN Department: Room: 280 Gender: M Eap Consultant: : 1945 Requested by: Tulio Leahy Order Number: [id number] Reading MD: JOHN PAUL LARSEN Intervals [place] Rate: 63 P: 24 NM: 164 QRS: 42 QRSD: 89 T: -31 QT: 404 QTc: 412 Interpretive Statements SINUS RHYTHM Electronically Signed On 11-30-16 07:40:53 CDT by JOHN PAUL LARSEN [id number]
--- NOTE | 2016-11-30 07:54 | History and Physical Update ---
Sedation H&P Update - History and Physical H&P was reviewed, the patient examined and there: are no changes in the patients condition since last H&P was completed. - Dictation Physical: refer to H&P completed by admitting physician - Physical Exam Mental Status: alert and oriented Heart: regular rate and rhythm Lung: clear to auscultation Abdomen: within normal limits Vitals: within normal limits - Sedation Plan for Sedation: moderate Patient Consent: Procedure disscussed with patient and patinet has consented., Risks and benefits were discussed with patient,including infection,, bleeding, injury to surrounding structures, seizure, temporary nerve, Patient understands and accepts potential risks/benefits and agrees to ASA Class: III Airway Assessment: Class II: Soft palate, uvula, fauces visible
[2016-11-30] MEDS: PANTOPRAZOLE 40 MG TABLET PO SCH (08:48)
[2016-11-30] MEDS: ASPIRIN EC 81 MG TABLET PO SCH (08:48)
[2016-11-30] MEDS ORDERED: MIDAZOLAM 2 MG/2 ML VIAL ONE ×2 (10:50→11:02)
[2016-11-30] MEDS ORDERED: HEPARIN/NACL 0.9% 2 UNITS/ML 500 ML IV ONE (10:50)
[2016-11-30] MEDS ORDERED: fentaNYL 100 MCG/2 ML VIAL ONE ×2 (10:50→11:02)
[2016-11-30] MEDS ORDERED: LIDOCAINE 1% 20 ML VIAL ONE ×2 (10:50→10:51)
[2016-11-30] MEDS ORDERED: HEPARIN 5,000 UNIT/1 ML VIAL ONE ×3 (11:04→12:04)
[2016-11-30] MEDS ORDERED: ISOPROTERENOL 1 MG/5 ML VIAL IV ONE (11:08)
[2016-11-30] MEDS ORDERED: ADENOSINE 6 MG/2 ML VIAL ONE ×2 (12:49→12:51)
[2016-11-30] MEDS ORDERED: ZALEPLON 5 MG CAPSULE PO PRN (12:59)
[2016-11-30] MEDS ORDERED: ACETAMINOPHEN 325 MG TABLET PO PRN (12:59)
[2016-11-30] MEDS ORDERED: GLUCAGON 1 MG VIAL IM PRN (13:00)
[2016-11-30] MEDS ORDERED: DEXTROSE 50% 25 GM/50 ML VIAL IV PRN (13:00)
[2016-11-30] MEDS ORDERED: PROTAMINE SULFATE 50 MG/5 ML VIAL IV ONE (13:18)
--- NOTE | 2016-11-30 13:35 | Electrophysiology Report ---
Date of Procedure:: 11/30/16 Pre-op diagnosis: PSVT Post-op diagnosis: same Procedure: PROCEDURAL SUMMARY EP study with ablation of left lateral accessory pathway from transseptal access. Successful procedures. 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 General anesthesia Conscious sedation was initiated and maintained during the procedure with iv. Versed and Fentanyl. Anticoagulation Iv. heparin was utilized with ACT monitoring, with a goal ACT 300-350 during the procedure. The heparin was reversed with protamine before the sheaths were pulled. Access and catheters used The Seldinger technique was performed utilizing a 21 gauge micropuncture needle and 0.[address] the following sheaths. RFV: 8 Fr -bidirectional Navistar mapping ablation catheter RFV: 8 Fr - CS catheter LFV: 5 Fr His diagnostic catheter LFV: 5 Fr RA Quadripolar diagnostic catheter LFV: 6 Fr RV Quadripolar diagnostic catheter LFV: 9 Fr Cartosound ICE catheter Electrophysiologic Study - baseline Baseline ECG: sinus rhythm, RR 761 ms. MD 108, QRS 80, QT 380 ms. There was no preexcitation. The catheters were introduced under electroanatomical guidance. A three- dimensional right atrial fast anatomical map was constructed. The CS and his positions were marked. During catheter placement, PACs initiated irregular, narrow QRS tachycardia, cycle length of 322 ms, VA 97, earliest atrial activation in CS 1, 2. The arrhythmia stopped with a V. AH 103 ms, HV 37 ms. Retrograde conduction eccentric, atrial activation fused from proximal and distal CS. At and below 400 ms cycle length RV stim, the retrograde atrial activation becomes fully eccentric, earliest atrial activation in CS 1-2. Retrograde accessory pathway conduction becomes 2:1 at 340 ms. Retrograde pathway ERP 600/230 ms. At 330/300 ms programmed ventricular extrastimulation, SVT was inducible, without significant prolongation in the AH. Cycle length of 315 ms, VA 110 ms. Entrainment from the ventricle always terminated the arrhythmia. 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 Ablation The CARTOSOUND catheter was introduced. The atrial septum was normal. The ablation catheter was placed on the fossa and advanced into the left atrium, through a PFO. Earliest retrograde atrial activation was mapped with the CARTO system, during right ventricular stimulation. Lesions, with 55 Celsius, 40 W energy were delivered, until persistent retrograde extranodal block was achieved. Follow up EP study VA Wenckebach 270 ms. Retrograde conduction decremental, concentric. Retrograde AV zach ERP 400/270 ms. No jump. Para His pacing showed an increase of retrograde conduction time from 101 to 159 ms, upon loss of direct His bundle capture, with similar atrial activation sequence. AV Wenckebach 290 ms. AV zach ERP 600/less than 200 ms. No AH jump. AH 75, HV 37 ms. No arrhythmia was inducible with programmed extra stimulation from the RV or RA , with and without Isuprel infusion. During right ventricular stimulation, 12 mg of IV adenosine was injected. Transient retrograde block was noted, there was no recurrence of extranodal connection. End of the procedure The ICE catheter was used to assess the pericardial space, there was no effusion. The heparin was reversed with protamine. The catheters were removed and the sheaths were pulled. Manual compression was applied until hemostasis was achieved. PROCEDURE(S) 1. Comprehensive electrophysiologic evaluation including insertion and repositioning of multiple electrode catheters with induction or attempted induction of an arrhythmia with right atrial pacing and recording, right ventricular pacing and recording (when necessary), His bundle recording (when necessary) with intracardiac catheter ablation of arrhythmogenic focus; with treatment of supraventricular tachycardia by ablation of fast or slow atrioventricular pathway, accessory atrioventricular connection, cavo-tricuspid isthmus or other single atrial focus or source of atrial re-entry 2. Intracardiac electrophysiologic three-dimensional mapping 3. Transseptal left atrial access (through PFO) 4. Intracardiac ultrasound 5. Moderate conscious sedation, 115 Anesthesia: moderate conscious sedation Surgeon / Physician: Tulio Leahy Chemical Packager: other (Tj) Estimated blood loss: minimal Specimens: none sent Condition: stable Disposition: floor
--- NOTE | 2016-11-30 14:17 | EKG Report ---
Stationary ECG Study [facility] Test Date: 11/30/2016 2:18:25 PM Pat Name: ELBA DURAN Department: Room: 280 Gender: M Director Epidemiology: : 1945 Requested by: Tulio Leahy Order Number: [id number] Reading MD: LORENZO ARVIZU Intervals [place] Rate: 77 P: 73 ME: 165 QRS: 80 QRSD: 87 T: 55 QT: 375 QTc: 407 Interpretive Statements SINUS RHYTHM at 77 bpm NST, CONSIDER ISCHEMIA Electronically Signed On 11-30-16 16:28:54 CDT by LORENZO ARVIZU [email or web address]
[2016-11-30] MEDS: INSULIN LISPRO 100 UNIT/ML SUBCUT SCH ×2 (17:23→22:04)
[2016-11-30] MEDS: ENOXAPARIN 40 MG/0.4 ML SYRINGE SUBCUT SCH (21:59)
[2016-11-30] MEDS: POLYETHYLENE GLYCOL POWDER 17 GM PACK PO PRN (22:00)
[2016-12-01 05:54] LABS: Basophils # 0.1 10*3/uL (0.0-0.2); Eosinophils # 0.3 10*3/uL (0.0-0.87); Eosinophils % 2.7 % (0.00-10.9); Hematocrit 45.3 VOL% (42.0-52.0); Hemoglobin 15.6 GM/DL (14.0-18.0); Immature Granulocytes % 0.3 %; Immature Granulocytes Absolute 0.03 #; Lymphocytes % 31.8 % (21.2-54.2); Mean Corpuscular HGB Conc 34.4 GM/DL (32-36); Mean Corpuscular Hemoglobin 29 PG (27-34); Mean Corpuscular Volume 85.5 FL (87-102); Mean Platelet Volume 9.5 FL (9.6-12.0); Monocytes # 0.7 10*3/uL (0.11-0.8); Neutrophils # 5.3 10*3/uL (1.4-7.4); Neutrophils % 57.2 % (38.7-73.9); Platelet Count 241 T/CUMM (130-400); Red Cell Distribution Width 12.6 % (9.3-17.3); White Blood Count 9.3 T/CUMM (4-12)
[2016-12-01 06:27] LABS: Calcium 8.9 MG/DL (8.5-10.1); Osmolality,Calculated 284.1 MOS/KG (273-304); Potassium 4.2 MMOL/L (3.5-5.1)
--- NOTE | 2016-12-01 07:35 | Electrophysiology Progress Not ---
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 Was admitted with persistent SVT, mild demand ischemia in context of SVT/RVR, lasting for hours. Otherwise, no exertional angina. Multiple CAD risk factors, hypertension, hyperlipidemia, mild type 2 diabetes mellitus, past smoker, positive family history. No structural disease on echo, stress test showed no ischemia. Elevated troponin was likely due to demand ischemia, prominent RVR with SVT for hours. 11/30: EPS: oAVRT. Concealed LLAP ablation. -Continue aspirin. -Discussed post ablation activity limitations. May remove groin dressings today , no hot tubs for a week, no heavy lifting for 1 week. No driving for 3 days. -BB/CCB was stopped. BP well controlled, LVEF normal, no obstructive CAD. -FU with dr. Leahy for groin check in 1-2 weeks Current Visit: Yes (2) History of Foarn-Uwdjwlpev-Qzjok (WPW) syndrome Status: Chronic Current Visit: Yes (3) Hypertension Status: Chronic Current Visit: Yes (4) HLD (hyperlipidemia) Status: Chronic Current Visit: Yes (5) Diabetes mellitus Status: Chronic Current Visit: Yes (6) GERD (gastroesophageal reflux disease) Status: Chronic Current Visit: Yes (7) Arthritis Status: Chronic Current Visit: Yes (8) Former smoker Status: Chronic Current Visit: Yes Electrophysiology Subjective Interval history: He is feeling fine. No groin hematoma. No significant arrhythmia on telemetry , few PVCs. No chest pain. Exam - Constitutional Vitals: Period Temp Pulse Resp BP Sys/Renee Pulse Ox Last 24 Hr 97.2 F-97.9 F 63-84 18-20 113-144/70-93 92-96 General appearance: normal weight, over weight - Head Head exam: Present: normal inspection, normocephalic - Eye Eye exam: Absent: conjunctival injection, scleral icterus Pupils: Absent: dilated - ENT ENT exam: Present: normal external ear exam - Neck Neck exam: Present: normal inspection - Respiratory Respiratory exam: Present: clear to auscultation bilaterally. Absent: wheezes - Cardiovascular Cardiovascular exam: Present: regular rate and rhythm. Absent: JVD - GI/Abdominal GI/Abdominal exam: Present: normal bowel sounds. Absent: distended - Extremities Exam Extremities exam: Present: normal inspection, normal capillary refill. Absent: edema - Back Exam Back exam: Present: normal inspection - Neurological Exam Neurological exam: Present: alert, oriented X3 - Psychiatric Psychiatric exam: Present: normal affect, normal mood - Skin Skin exam: Present: normal color, warm. Absent: cyanosis Results - Labs CBC & BMP: 12/01/16 04:32 12/01/16 04:32 Lab Results: I have reviewed the past 24 hour labs Specialty Discharge - Follow Up or Referrals - Speciality Discharge Instructions Cardiology Instructions: FU with EPdr. Leahy in 1-2 weeks
[2016-12-01] MEDS: ASPIRIN EC 81 MG TABLET PO SCH (09:08)
[2016-12-01] MEDS: PANTOPRAZOLE 40 MG TABLET PO SCH (09:08)
--- NOTE | 2016-12-01 09:27 | Discharge Summary ---
Hospital Course - Hospital Course Hospital Course: Mr. Malcolm is a 71-year-old male with a history of Patsy-Parkinson- White syndrome, hypertension, hyperlipidemia, diabetes, GERD, and arthritis who was transferred to our facility from [facility] for further evaluation of SVT. At the outlying facility he was noted to be in SVT with heart rate of 193 which was converted to normal sinus rhythm with 6 mg of Adenocard IV. He was noted to have a mildly elevated troponin which was felt to be due to demand ischemia, prominent RVR with SVT for hours. He had a normal stress SPECT Cardiolite study which also revealed ejection fraction of 55 -65% with no regional wall motion abnormality. Electrophysiology was consulted and discussed with him and his family the risk and benefits of management options for symptomatic paroxysmal supraventricular tachycardia. He was scheduled for an EP study/SVT ablation on Wednesday which he underwent without difficulty. This morning, he is doing well and is anxious for discharge. EP has seen him and discussed post ablation activity limitations including no hot tubs for a week, no heavy lifting for 1 week, and no driving for 3 days. His beta-eren/calcium channel eren was stopped as his blood pressure has been well controlled, EF is been normal, and he has no indications of obstructive CAD being present. His bilateral groin dressings were removed. There is no bleeding, hematoma, or bruit at either site. Femoral pulses are 3+ bilaterally. Distal pulses are 2+ bilaterally. His vital signs and lab work have been stable. At this time, he has met maximum benefit from hospitalization and will be discharged home in stable condition to follow-up with Dr. Leahy for groin check in 1-2 weeks. Since his job requires lifting, he will be given a work excuse to excuse him for the next week. - Time spent with patient Time with patient DS: Less than 30 minutes Diagnosis - Discharge Diagnosis (1) Supraventricular tachycardia Status: Resolved (2) History of Tgeal-Dwcrtoyts-Unvbo (WPW) syndrome Status: Chronic (3) Hypertension Status: Chronic (4) HLD (hyperlipidemia) Status: Chronic (5) Diabetes mellitus Status: Chronic (6) GERD (gastroesophageal reflux disease) Status: Chronic (7) Arthritis Status: Chronic (8) Former smoker Status: Chronic Specialty Discharge - Follow Up or Referrals Follow up with: Tulio Leahy MD [Physician] - 1 Week (Follow-up with Dr. Leahy in 1-2 weeks for groin check.) Discharge Plan - Discharge Data Disposition: Disch To Home/Self Care Condition at Discharge: Stable Discharge Diet: low fat, low cholesterol Activity: no lifting (Over 5 pounds for 1 week), other (No bending, stooping, or squatting for the next week.) Hygiene: may shower (Did not submerge groin sites beneath water for 1 week.) Weight Bearing at Discharge: full weight bearing Driving: not for (No driving for the next 3 days.) Contact your physician if you experience:: fever over 101, Difficulty voiding, Redness or swelling, Nausea/Vomiting, Shortness of breath, Bleeding, pain uncontrolled by pain medications - Discharge Medications New Aspirin EC Tab 81 mg PO DAILY #30 tablet Continue Celecoxib 200 mg PO DAILY Simvastatin 20 mg PO DAILY Metformin HCl [Metformin HCl ER] 500 mg PO DAILY Discontinued Lisinopril [Lisinopril] 20 mg PO DAILY - Follow Up or Referral - Forms/Instructions Additional Discharge Instructions: He is to continue taking a baby aspirin every day. He may get this bzvd-hak-hjfbbil or fill the prescription I sent in. He will need to be given a work excuse for the next week. His lisinopril has been stopped. He is to monitor his blood pressure at home 2-3 times per week and if it consistently runs greater than 140/90, he is to notify his primary care provider as he may need to go back on this medicine. Exam - Constitutional Vitals: Period Temp Pulse Resp BP Sys/Renee Pulse Ox Last 24 Hr 97.2 F-98 F 63-84 18-20 116-144/70-93 92-98 Exam: General appearance: Pleasant and cooperative. Normal weight, no acute distress. - Head Head exam: Present: normal inspection, normocephalic, atraumatic. Absent: hematoma, laceration - Eye Eye exam: Present: EOMI. Absent: conjunctival injection, nystagmus, periorbital swelling, scleral icterus, laceration to eyelids Pupils: Present: PERRL. Absent: constricted, dilated, fixed, irregular, unequal - ENT ENT exam: Present: normal exam, normal external ear exam - Neck Neck exam: Present: normal inspection. Absent: lymphadenopathy, meningismus, tenderness, thyromegaly - Respiratory Respiratory exam: Present: clear to auscultation bilaterally. Absent: accessory muscle use, chest wall tenderness - Cardiovascular Cardiovascular exam: Present: regular rate and rhythm. Absent: carotid bruit, gallop, JVD, rubs, murmur - GI/Abdominal GI/Abdominal exam: Present: normal bowel sounds, soft. Absent: distended, firm , guarding, hernia, mass, tenderness, rebound. - Extremities Exam Extremities exam: Present: normal inspection, normal capillary refill. Upper extremity pulses 2+. Lower extremity pulses 2+. Absent: calf tenderness, edema -Musculoskeletal Exam Musculoskeletal: Present: No Fluid Collection, No Pain, Normal Range of Motion - Back Exam Back exam: Present: normal inspection. Absent: muscle spasm, vertebral tenderness - Neurological Exam Neurological exam: Present: alert, oriented X3, grossly intact without resting or essential tremor - Psychiatric Psychiatric exam: Present: normal affect, normal mood - Skin Skin exam: Present: normal color, warm, dry, intact. Absent: cyanosis, diaphoretic, rash, urticaria -Groin Bilateral groin exam: Bilateral groin dressings removed. No bleeding, hematoma , or bruit at sites. Femoral pulses 3+ bilaterally. Distal pulses 2+ bilaterally. Discharge Results Procedures and tests throughout hospitalization: Date of Procedure:: 11/30/16 PROCEDURAL SUMMARY EP study with ablation of left lateral accessory pathway from transseptal access. Electrophysiologic Study - baseline Baseline ECG: sinus rhythm, RR 761 ms. WI 108, QRS 80, QT 380 ms. There was no preexcitation. The catheters were introduced under electroanatomical guidance. A three- dimensional right atrial fast anatomical map was constructed. The CS and his positions were marked. During catheter placement, PACs initiated irregular, narrow QRS tachycardia, cycle length of 322 ms, VA 97, earliest atrial activation in CS 1, 2. The arrhythmia stopped with a V. AH 103 ms, HV 37 ms. Retrograde conduction eccentric, atrial activation fused from proximal and distal CS. At and below 400 ms cycle length RV stim, the retrograde atrial activation becomes fully eccentric, earliest atrial activation in CS 1-2. Retrograde accessory pathway conduction becomes 2:1 at 340 ms. Retrograde pathway ERP 600/230 ms. At 330/300 ms programmed ventricular extrastimulation, SVT was inducible, without significant prolongation in the AH. Cycle length of 315 ms, VA 110 ms. Entrainment from the ventricle always terminated the arrhythmia. 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 Ablation The CARTOSOUND catheter was introduced. The atrial septum was normal. The ablation catheter was placed on the fossa and advanced into the left atrium, through a PFO. Earliest retrograde atrial activation was mapped with the CARTO system, during right ventricular stimulation. Lesions, with 55 Celsius, 40 W energy were delivered, until persistent retrograde extranodal block was achieved. Follow up EP study VA Wenckebach 270 ms. Retrograde conduction decremental, concentric. Retrograde AV zach ERP 400/270 ms. No jump. Para His pacing showed an increase of retrograde conduction time from 101 to 159 ms, upon loss of direct His bundle capture, with similar atrial activation sequence. AV Wenckebach 290 ms. AV zach ERP 600/less than 200 ms. No AH jump. AH 75, HV 37 ms. No arrhythmia was inducible with programmed extra stimulation from the RV or RA , with and without Isuprel infusion. During right ventricular stimulation, 12 mg of IV adenosine was injected. Transient retrograde block was noted, there was no recurrence of extranodal connection. PROCEDURE(S) 1. Comprehensive electrophysiologic evaluation including insertion and repositioning of multiple electrode catheters with induction or attempted induction of an arrhythmia with right atrial pacing and recording, right ventricular pacing and recording (when necessary), His bundle recording (when necessary) with intracardiac catheter ablation of arrhythmogenic focus; with treatment of supraventricular tachycardia by ablation of fast or slow atrioventricular pathway, accessory atrioventricular connection, cavo-tricuspid isthmus or other single atrial focus or source of atrial re-entry 2. Intracardiac electrophysiologic three-dimensional mapping 3. Transseptal left atrial access (through PFO) 4. Intracardiac ultrasound 5. Moderate conscious sedation, 115 Labs on day of discharge: Labs from last 24 hours 12/01/16 12/01/16 12/01/16 08:05 04:32 04:32 WBC 9.3 RBC 5.30 Hgb 15.6 Hct 45.3 MCV 85.5 L MCH 29 MCHC 34.4 RDW 12.6 Plt Count 241 MPV 9.5 L Neut % (Auto) 57.2 Lymph % (Auto) 31.8 [place] % (Auto) 7.0 Eos % (Auto) 2.7 Baso % (Auto) 1.0 H Neut # (Auto) 5.3 Lymph # (Auto) 3.0 [place] # (Auto) 0.7 Eos # (Auto) 0.3 Baso # (Auto) 0.1 Immature Gran % 0.3 Nucleated RBC % 0.0 Immature Gran # 0.03 Nucleated RBCs # 0.00 Sodium 142 Potassium 4.2 Chloride 106 Carbon Dioxide 28 Anion Gap 12.2 BUN 16 Creatinine 0.90 GFR Calculation 109 BUN/Creatinine Ratio 17.00 Glucose 115 H POC Glucose 145 H Calculated Osmolality 284.1 Calcium 8.9 11/30/16 11/30/16 22:06 16:45 WBC RBC Hgb Hct MCV MCH MCHC RDW Plt Count MPV Neut % (Auto) Lymph % (Auto) [place] % (Auto) Eos % (Auto) Baso % (Auto) Neut # (Auto) Lymph # (Auto) [place] # (Auto) Eos # (Auto) Baso # (Auto) Immature Gran % Nucleated RBC % Immature Gran # Nucleated RBCs # Sodium Potassium Chloride Carbon Dioxide Anion Gap BUN Creatinine GFR Calculation BUN/Creatinine Ratio Glucose POC Glucose 144 H 198 H Calculated Osmolality Calcium DS: Provider Date of admission: 11/27/16 02:35 Primary care physician: Evan Horne Attending physician on admission: Anirudh Owen MD Consults: 11/27/16 02:36 Consult to Physician [CONS] Routine Comment: EP consult - WPW and PSVT Consulting Provider: Tulio Leahy When should Consulting Provider be notified: In am Person Notified: Lon Date Notified: 11/27/16 Time Notified: 07:45 11/27/16 02:38 Consult to Case Mgmt/Social Srvs [CONS] Routine Reason for Case Mgmt/Social Srvs: Rehab Discharging clinician: MENDOZA Fallon Expected date of discharge: 12/01/16
[2016-12-01 11:45] VITALS: BP 129/77
[2016-12-01] MEDS: INSULIN LISPRO 100 UNIT/ML SUBCUT SCH ×2 (12:24→12:25)
== END 2016-12-01 12:01 | disposition home or self-care (01) | DRG 274 ==
LOC: EDBD → EDUNIT# → N.ED 01:21 → N.EDINP 02:35 → N.TELEN 03:02
PROVIDERS: ADMIT Internal Medicine Cardiovascular Disease; ATTEND Internal Medicine Cardiovascular Disease

== ENCOUNTER 2019-01-09 02:23 | Inpatient (IN) ==
[2019-01-09] MEDS ORDERED: hydrALAZINE 20 MG/1 ML VIAL IV PRN (04:41)
[2019-01-09] MEDS: SODIUM CHLORIDE 0.9% 1,000 ML IV SCH ×2 (05:51→15:35)
[2019-01-09 06:05] LABS: Basophils # 0.1 10*3/uL (0.0-0.2); Basophils % 0.3 % (0.0-0.8); Hematocrit 41.2 VOL% (42.0-52.0); Immature Granulocytes % 0.7 %; Immature Granulocytes Absolute 0.13 #; Lymphocytes # 1.5 10*3/uL (1.4-4.0); Lymphocytes % 7.8 % (21.2-54.2); Mean Corpuscular Volume 84.8 FL (87-102); Mean Platelet Volume 9.6 FL (9.6-12.0); Monocytes % 6.1 % (1.7-12.7); Neutrophils % 85.1 % (38.7-73.9); Platelet Count 269 T/CUMM (130-400); Red Blood Count 4.86 MC/CUMM (3.8-5.5); Red Cell Distribution Width 13.4 % (9.3-17.3); White Blood Count 18.7 T/CUMM (4-12)
[2019-01-09] MEDS ORDERED: diphenhydrAMINE CAP 25 MG CAPSULE PO PRN (06:34)
[2019-01-09] MEDS ORDERED: NICOTINE 21 MG/24 HR PATCH TRANSDERM PRN (06:34)
[2019-01-09 06:36] LABS: Albumin 2.6 G/DL (3.4-5.0); Bilirubin,Total 0.8 MG/DL (0.2-1.0); Calcium 8.6 MG/DL (8.5-10.1); Osmolality,Calculated 282.8 MOS/KG (273-304); Total Protein 6.9 G/DL (6.4-8.3)
[2019-01-09 06:59] LABS: Risk Ratio 7.21; Thyroid Stimulating Hormone 2.14 uIU/ml (0.358-3.74); VLDL CHOLESTEROL 20.4 MG/DL
[2019-01-09] MEDS: PANTOPRAZOLE 40 MG TABLET PO SCH (10:39)
[2019-01-09] MEDS ORDERED: metroNIDAZOLE INJ 500 MG in PREMIX 1 EACH IV SCH (11:00)
[2019-01-09] MEDS: ONDANSETRON 4 MG/2 ML VIAL IV PRN (14:04)
[2019-01-09] MEDS: MORPHINE 4 MG/1 ML VIAL IV PRN ×2 (14:06→23:45)
[2019-01-09] MEDS: PIPERACILLIN/TAZOBACTAM 3,375 MG in SODIUM CHLORIDE 0.9% 100 ML IV SCH ×2 (16:31→23:51)
[2019-01-09] MEDS ORDERED: DEXTROSE 50% 25 GM/50 ML VIAL IV PRN (18:33)
[2019-01-09] MEDS ORDERED: GLUCAGON 1 MG VIAL IM PRN (18:33)
[2019-01-09] MEDS ORDERED: DEXTROSE 10% 250 ML IV PRN (18:37)
[2019-01-09] MEDS: INSULIN REGULAR 100 UNIT/ML SUBCUT SCH (22:07)
[2019-01-09] MEDS: ACETAMINOPHEN 325 MG TABLET PO PRN (23:48)
[2019-01-10] MEDS: SODIUM CHLORIDE 0.9% 1,000 ML IV SCH ×4 (00:05→16:20)
[2019-01-10 04:49] LABS: Basophils # 0.1 10*3/uL (0.0-0.2); Basophils % 0.4 % (0.0-0.8); Eosinophils % 0.1 % (0.00-10.9); Hematocrit 40.8 VOL% (42.0-52.0); Hemoglobin 13.4 GM/DL (14.0-18.0); Immature Granulocytes % 0.9 %; Immature Granulocytes Absolute 0.12 #; Lymphocytes # 1.6 10*3/uL (1.4-4.0); Mean Corpuscular HGB Conc 32.8 GM/DL (32-36); Mean Corpuscular Volume 86.1 FL (87-102); Mean Platelet Volume 9.4 FL (9.6-12.0); Monocytes % 7.5 % (1.7-12.7); Neutrophils % 79.1 % (38.7-73.9); Platelet Count 257 T/CUMM (130-400); Red Blood Count 4.74 MC/CUMM (3.8-5.5); Red Cell Distribution Width 13.7 % (9.3-17.3); White Blood Count 13.5 T/CUMM (4-12)
[2019-01-10 05:20] LABS: Albumin 2.3 G/DL (3.4-5.0); Bilirubin,Total 4.1 MG/DL (0.2-1.0); Calcium 8.4 MG/DL (8.5-10.1); Osmolality,Calculated 282.5 MOS/KG (273-304); Total Protein 6.6 G/DL (6.4-8.3)
[2019-01-10] MEDS ORDERED: cefTRIAXone 1,000 MG in SYRINGE 1 EACH IV SCH (06:00)
[2019-01-10] MEDS: INSULIN REGULAR 100 UNIT/ML SUBCUT SCH ×4 (08:45→21:46)
[2019-01-10] MEDS: PIPERACILLIN/TAZOBACTAM 3,375 MG in SODIUM CHLORIDE 0.9% 100 ML IV SCH ×2 (08:46→15:56)
[2019-01-10] MEDS: ACETAMINOPHEN 325 MG TABLET PO PRN (13:07)
[2019-01-10] MEDS: ONDANSETRON 4 MG/2 ML VIAL IV PRN (13:08)
[2019-01-10] MEDS: MORPHINE 4 MG/1 ML VIAL IV PRN (13:11)
[2019-01-10] MEDS: DILTIAZEM CD 120 MG CAPSULE PO SCH (15:55)
[2019-01-10] MEDS: LISINOPRIL 20 MG TABLET PO SCH (15:55)
[2019-01-10] MEDS: PANTOPRAZOLE 40 MG TABLET PO SCH (15:55)
[2019-01-10] MEDS: ASPIRIN EC 81 MG TABLET PO SCH (15:56)
[2019-01-11] MEDS: ACETAMINOPHEN 325 MG TABLET PO PRN (00:09)
[2019-01-11] MEDS: PIPERACILLIN/TAZOBACTAM 3,375 MG in SODIUM CHLORIDE 0.9% 100 ML IV SCH ×3 (00:15→16:25)
[2019-01-11] MEDS: SODIUM CHLORIDE 0.9% 1,000 ML IV SCH ×5 (02:44→21:43)
[2019-01-11 05:03] LABS: Basophils % 0.4 % (0.0-0.8); Eosinophils # 0.1 10*3/uL (0.0-0.87); Hematocrit 36.3 VOL% (42.0-52.0); Hemoglobin 12.3 GM/DL (14.0-18.0); Immature Granulocytes % 0.4 %; Immature Granulocytes Absolute 0.04 #; Lymphocytes # 1.5 10*3/uL (1.4-4.0); Lymphocytes % 15.4 % (21.2-54.2); Mean Corpuscular HGB Conc 33.9 GM/DL (32-36); Mean Corpuscular Volume 85.2 FL (87-102); Mean Platelet Volume 9.8 FL (9.6-12.0); Monocytes % 8.7 % (1.7-12.7); Neutrophils % 74.1 % (38.7-73.9); Platelet Count 242 T/CUMM (130-400); Red Blood Count 4.26 MC/CUMM (3.8-5.5); Red Cell Distribution Width 14.1 % (9.3-17.3); White Blood Count 9.9 T/CUMM (4-12)
[2019-01-11 05:25] LABS: INR 1.7; PT Patient Result 18.2 SECS; Partial Thromboplastin Time 32.2 SECS (0-40)
[2019-01-11 05:27] LABS: Calcium 8.3 MG/DL (8.5-10.1); Osmolality,Calculated 285.1 MOS/KG (273-304); Total Protein 6.1 G/DL (6.4-8.3)
[2019-01-11] MEDS ORDERED: INDOMETHACIN SUPP 50 MG SUPP RECTAL ONE ×2 (06:33→08:30)
[2019-01-11] MEDS: INSULIN REGULAR 100 UNIT/ML SUBCUT SCH ×4 (08:29→21:43)
[2019-01-11] MEDS ORDERED: PHYTONADIONE 10 MG/1 ML AMP SUBCUT ONE (08:48)
[2019-01-11] MEDS: ONDANSETRON 4 MG/2 ML VIAL IV PRN (09:30)
[2019-01-11] MEDS: MORPHINE 4 MG/1 ML VIAL IV PRN (09:33)
[2019-01-11] MEDS: ASPIRIN EC 81 MG TABLET PO SCH (09:35)
[2019-01-11] MEDS: LISINOPRIL 20 MG TABLET PO SCH (09:35)
[2019-01-11] MEDS: PANTOPRAZOLE 40 MG TABLET PO SCH (09:36)
[2019-01-11] MEDS: DILTIAZEM CD 120 MG CAPSULE PO SCH (09:36)
[2019-01-12] MEDS: PIPERACILLIN/TAZOBACTAM 3,375 MG in SODIUM CHLORIDE 0.9% 100 ML IV SCH ×3 (00:01→15:16)
[2019-01-12 03:25] LABS: Basophils % 0.3 % (0.0-0.8); Eosinophils # 0.2 10*3/uL (0.0-0.87); Eosinophils % 1.6 % (0.00-10.9); Hematocrit 34.4 VOL% (42.0-52.0); Hemoglobin 11.8 GM/DL (14.0-18.0); Immature Granulocytes % 0.9 %; Lymphocytes # 1.7 10*3/uL (1.4-4.0); Lymphocytes % 15.8 % (21.2-54.2); Mean Corpuscular HGB Conc 34.3 GM/DL (32-36); Mean Corpuscular Volume 84.5 FL (87-102); Mean Platelet Volume 9.9 FL (9.6-12.0); Monocytes % 9.9 % (1.7-12.7); Neutrophils % 71.5 % (38.7-73.9); Platelet Count 253 T/CUMM (130-400); Red Blood Count 4.07 MC/CUMM (3.8-5.5); Red Cell Distribution Width 14.3 % (9.3-17.3); White Blood Count 10.8 T/CUMM (4-12)
[2019-01-12 03:35] LABS: INR 1.4; PT Patient Result 14.7 SECS
[2019-01-12 03:45] LABS: Albumin 1.9 G/DL (3.4-5.0); Bilirubin,Total 1.7 MG/DL (0.2-1.0); Calcium 7.9 MG/DL (8.5-10.1); Total Protein 6.1 G/DL (6.4-8.3)
[2019-01-12] MEDS: SODIUM CHLORIDE 0.9% 1,000 ML IV SCH ×4 (04:40→21:54)
[2019-01-12] MEDS ORDERED: fentaNYL 100 MCG/2 ML VIAL ONE (07:19)
[2019-01-12] MEDS ORDERED: POTASSIUM CHLORIDE 20 MEQ TABLET PO ONE (07:44)
[2019-01-12] MEDS ORDERED: INDOMETHACIN SUPP 50 MG SUPP RECTAL ONE (08:30)
[2019-01-12] MEDS: INSULIN REGULAR 100 UNIT/ML SUBCUT SCH ×5 (08:36→21:54)
[2019-01-12] MEDS ORDERED: LIDOCAINE 2% 5 ML VIAL ONE (09:00)
[2019-01-12] MEDS ORDERED: SUCCINYLCHOLINE 200 MG/10 ML VIAL ONE (09:00)
[2019-01-12] MEDS ORDERED: PHENYLEPHRINE 1 MG/10 ML SYRINGE IV ONE (09:00)
[2019-01-12] MEDS ORDERED: PROPOFOL 200 MG/20 ML VIAL IV ONE (09:00)
[2019-01-12] MEDS ORDERED: ONDANSETRON 4 MG/2 ML VIAL ONE (09:00)
[2019-01-12] MEDS: LACTOBACILLUS ACIDOPHILUS/BULGARICUS CAPLET PO SCH (15:11)
[2019-01-12] MEDS: LISINOPRIL 20 MG TABLET PO SCH (15:11)
[2019-01-12] MEDS: ASPIRIN EC 81 MG TABLET PO SCH (15:12)
[2019-01-12] MEDS: PANTOPRAZOLE 40 MG TABLET PO SCH (15:12)
[2019-01-12] MEDS: DILTIAZEM CD 120 MG CAPSULE PO SCH (15:14)
[2019-01-12] MEDS: MORPHINE 4 MG/1 ML VIAL IV PRN (21:54)
[2019-01-13] MEDS: PIPERACILLIN/TAZOBACTAM 3,375 MG in SODIUM CHLORIDE 0.9% 100 ML IV SCH ×3 (01:35→15:02)
[2019-01-13] MEDS: MORPHINE 4 MG/1 ML VIAL IV PRN (01:35)
[2019-01-13 05:36] LABS: Basophils % 0.3 % (0.0-0.8); Eosinophils # 0.1 10*3/uL (0.0-0.87); Eosinophils % 0.6 % (0.00-10.9); Hematocrit 34.1 VOL% (42.0-52.0); Hemoglobin 11.3 GM/DL (14.0-18.0); Immature Granulocytes % 1.3 %; Immature Granulocytes Absolute 0.18 #; Lymphocytes # 1.5 10*3/uL (1.4-4.0); Mean Corpuscular HGB Conc 33.1 GM/DL (32-36); Mean Corpuscular Volume 86.3 FL (87-102); Mean Platelet Volume 10.2 FL (9.6-12.0); Monocytes % 7.6 % (1.7-12.7); Neutrophils % 79.2 % (38.7-73.9); Platelet Count 305 T/CUMM (130-400); Red Blood Count 3.95 MC/CUMM (3.8-5.5); Red Cell Distribution Width 14.6 % (9.3-17.3); White Blood Count 13.7 T/CUMM (4-12)
[2019-01-13 05:49] LABS: Albumin 1.9 G/DL (3.4-5.0); Bilirubin,Total 1.6 MG/DL (0.2-1.0); Calcium 7.9 MG/DL (8.5-10.1); Osmolality,Calculated 288.7 MOS/KG (273-304)
[2019-01-13] MEDS: DILTIAZEM CD 120 MG CAPSULE PO SCH ×2 (10:43→10:54)
[2019-01-13] MEDS: SODIUM CHLORIDE 0.9% 1,000 ML IV SCH ×2 (10:54→19:54)
[2019-01-13] MEDS: INSULIN REGULAR 100 UNIT/ML SUBCUT SCH ×5 (10:54→20:31)
[2019-01-13] MEDS: LACTOBACILLUS ACIDOPHILUS/BULGARICUS CAPLET PO SCH (10:56)
[2019-01-13] MEDS ORDERED: LIDOCAINE 1% 20 ML VIAL ONE (11:00)
[2019-01-13] MEDS ORDERED: BUPIVACAINE 0.25% /EPI 10 ML VIAL ONE (11:00)
[2019-01-13] MEDS ORDERED: TISSUE ADHESIVE 1 EACH APPLICATOR TOP ONE (11:00)
[2019-01-13] MEDS ORDERED: PROPOFOL 200 MG/20 ML VIAL IV ONE (12:40)
[2019-01-13] MEDS ORDERED: ONDANSETRON 4 MG/2 ML VIAL ONE ×2 (12:41→13:39)
[2019-01-13] MEDS ORDERED: fentaNYL 100 MCG/2 ML VIAL ONE ×2 (12:41)
[2019-01-13] MEDS ORDERED: LACTATED RINGERS 1,000 ML IV ONE (12:41)
[2019-01-13] MEDS ORDERED: GLYCOPYRROLATE 0.4 MG/2 ML VIAL ONE ×2 (12:41→13:31)
[2019-01-13] MEDS ORDERED: NEOSTIGMINE 10 MG/10 ML VIAL ONE ×2 (12:41→13:31)
[2019-01-13] MEDS ORDERED: SEVOFLURANE 1 UNIT/15 MINUTE INH ONE (12:41)
[2019-01-13] MEDS ORDERED: ROCURONIUM 100 MG/10 ML VIAL IV ONE (12:41)
[2019-01-13] MEDS ORDERED: MIDAZOLAM 2 MG/2 ML VIAL ONE (12:41)
[2019-01-13] MEDS ORDERED: ONDANSETRON 4 MG/2 ML VIAL IV PRN (13:26)
[2019-01-13] MEDS ORDERED: EPINEPHrine 1 MG/ML VIAL ONE (13:31)
[2019-01-13] MEDS ORDERED: BUPIVACAINE 0.5% 50 ML VIAL ONE (13:31)
[2019-01-13] MEDS ORDERED: SODIUM CHLORIDE 0.9% 100 ML IV ONE (13:31)
[2019-01-13] MEDS ORDERED: DEXAMETHASONE 4 MG/1 ML VIAL ONE (13:31)
[2019-01-13] MEDS ORDERED: HYDROmorphone 2 MG/1 ML VIAL ONE (13:39)
[2019-01-13] MEDS: HYDROmorphone 2 MG/1 ML VIAL IV PRN ×4 (13:44→14:05)
[2019-01-13] MEDS: PANTOPRAZOLE 40 MG TABLET PO SCH (14:47)
[2019-01-13] MEDS: ASPIRIN EC 81 MG TABLET PO SCH (14:47)
[2019-01-13] MEDS: LISINOPRIL 20 MG TABLET PO SCH (14:47)
[2019-01-14] MEDS: PIPERACILLIN/TAZOBACTAM 3,375 MG in SODIUM CHLORIDE 0.9% 100 ML IV SCH ×3 (00:05→15:25)
[2019-01-14] MEDS: SODIUM CHLORIDE 0.9% 1,000 ML IV SCH (03:40)
[2019-01-14 05:27] LABS: Basophils % 0.2 % (0.0-0.8); Eosinophils % 0.1 % (0.00-10.9); Hematocrit 31.5 VOL% (42.0-52.0); Hemoglobin 10.5 GM/DL (14.0-18.0); Immature Granulocytes % 1.2 %; Immature Granulocytes Absolute 0.16 #; Lymphocytes % 7.3 % (21.2-54.2); Mean Corpuscular HGB Conc 33.3 GM/DL (32-36); Mean Corpuscular Volume 85.6 FL (87-102); Mean Platelet Volume 9.9 FL (9.6-12.0); Neutrophils % 86.2 % (38.7-73.9); Platelet Count 317 T/CUMM (130-400); Red Blood Count 3.68 MC/CUMM (3.8-5.5); White Blood Count 13.7 T/CUMM (4-12)
[2019-01-14 05:56] LABS: Albumin 1.7 G/DL (3.4-5.0); Bilirubin,Total 1.1 MG/DL (0.2-1.0); Calcium 7.6 MG/DL (8.5-10.1); Osmolality,Calculated 285.1 MOS/KG (273-304); Total Protein 5.6 G/DL (6.4-8.3)
[2019-01-14] MEDS: INSULIN REGULAR 100 UNIT/ML SUBCUT SCH ×4 (07:38→22:23)
[2019-01-14] MEDS: ASPIRIN EC 81 MG TABLET PO SCH (08:18)
[2019-01-14] MEDS: PANTOPRAZOLE 40 MG TABLET PO SCH (08:18)
[2019-01-14] MEDS: LACTOBACILLUS ACIDOPHILUS/BULGARICUS CAPLET PO SCH (08:18)
[2019-01-14] MEDS: LISINOPRIL 20 MG TABLET PO SCH (08:18)
[2019-01-14] MEDS: DILTIAZEM CD 120 MG CAPSULE PO SCH (08:24)
[2019-01-14] MEDS ORDERED: POTASSIUM CHLORIDE 20 MEQ TABLET PO ONE (10:03)
[2019-01-14] MEDS: POLYETHYLENE GLYCOL POWDER 17 GM PACK PO SCH (15:53)
[2019-01-14] MEDS: MULTIVITAMIN (BEROCCA) TABLET PO SCH (15:54)
[2019-01-14] MEDS: DOCUSATE SODIUM 100 MG CAPSULE PO SCH (21:55)
[2019-01-15] MEDS: PIPERACILLIN/TAZOBACTAM 3,375 MG in SODIUM CHLORIDE 0.9% 100 ML IV SCH ×4 (00:42→15:11)
[2019-01-15 05:20] LABS: Basophils % 0.4 % (0.0-0.8); Eosinophils # 0.1 10*3/uL (0.0-0.87); Hematocrit 29.2 VOL% (42.0-52.0); Hemoglobin 9.8 GM/DL (14.0-18.0); Immature Granulocytes % 2.2 %; Immature Granulocytes Absolute 0.21 #; Lymphocytes # 1.9 10*3/uL (1.4-4.0); Lymphocytes % 19.2 % (21.2-54.2); Mean Corpuscular HGB Conc 33.6 GM/DL (32-36); Mean Corpuscular Volume 86.1 FL (87-102); Mean Platelet Volume 9.9 FL (9.6-12.0); Monocytes % 7.1 % (1.7-12.7); Neutrophils % 70.1 % (38.7-73.9); Platelet Count 360 T/CUMM (130-400); Red Blood Count 3.39 MC/CUMM (3.8-5.5); Red Cell Distribution Width 15.2 % (9.3-17.3); White Blood Count 9.7 T/CUMM (4-12)
[2019-01-15 05:32] LABS: Calcium 7.7 MG/DL (8.5-10.1); Osmolality,Calculated 286.7 MOS/KG (273-304)
[2019-01-15] MEDS: INSULIN REGULAR 100 UNIT/ML SUBCUT SCH ×4 (07:42→20:51)
[2019-01-15] MEDS: MULTIVITAMIN (BEROCCA) TABLET PO SCH (08:01)
[2019-01-15] MEDS: ASPIRIN EC 81 MG TABLET PO SCH (08:01)
[2019-01-15] MEDS: LACTOBACILLUS ACIDOPHILUS/BULGARICUS CAPLET PO SCH (08:01)
[2019-01-15] MEDS: PANTOPRAZOLE 40 MG TABLET PO SCH (08:01)
[2019-01-15] MEDS: DOCUSATE SODIUM 100 MG CAPSULE PO SCH ×2 (08:02→20:50)
[2019-01-15] MEDS: LISINOPRIL 20 MG TABLET PO SCH (08:02)
[2019-01-15] MEDS: POLYETHYLENE GLYCOL POWDER 17 GM PACK PO SCH ×3 (08:02→20:50)
[2019-01-15] MEDS: DILTIAZEM CD 120 MG CAPSULE PO SCH (08:02)
[2019-01-15] MEDS ORDERED: POTASSIUM CHLORIDE 20 MEQ TABLET PO SCH (09:00)
[2019-01-15] MEDS ORDERED: POTASSIUM CHLORIDE 20 MEQ TABLET PO ONE (11:18)
[2019-01-15] MEDS ORDERED: MINERAL OIL 30 ML UDCUP PO ONE (12:31)
[2019-01-15] MEDS: POTASSIUM CHLORIDE 20 MEQ TABLET PO SCH (20:51)
[2019-01-15] MEDS ORDERED: SENNA 8.6 MG TABLET PO SCH (21:00)
[2019-01-16] MEDS: PIPERACILLIN/TAZOBACTAM 3,375 MG in SODIUM CHLORIDE 0.9% 100 ML IV SCH ×2 (00:20→08:52)
[2019-01-16 05:00] LABS: Basophils # 0.1 10*3/uL (0.0-0.2); Basophils % 0.6 % (0.0-0.8); Eosinophils # 0.3 10*3/uL (0.0-0.87); Hematocrit 29.7 VOL% (42.0-52.0); Hemoglobin 9.8 GM/DL (14.0-18.0); Immature Granulocytes % 3.3 %; Immature Granulocytes Absolute 0.32 #; Lymphocytes # 1.8 10*3/uL (1.4-4.0); Lymphocytes % 17.9 % (21.2-54.2); Mean Corpuscular Volume 86.6 FL (87-102); Mean Platelet Volume 9.6 FL (9.6-12.0); Monocytes % 6.7 % (1.7-12.7); Neutrophils % 68.5 % (38.7-73.9); Platelet Count 407 T/CUMM (130-400); Red Blood Count 3.43 MC/CUMM (3.8-5.5); Red Cell Distribution Width 15.6 % (9.3-17.3); White Blood Count 9.8 T/CUMM (4-12)
[2019-01-16] MEDS: INSULIN REGULAR 100 UNIT/ML SUBCUT SCH ×2 (08:43→12:10)
[2019-01-16] MEDS: LACTOBACILLUS ACIDOPHILUS/BULGARICUS CAPLET PO SCH (08:44)
[2019-01-16] MEDS: MULTIVITAMIN (BEROCCA) TABLET PO SCH (08:45)
[2019-01-16] MEDS: POLYETHYLENE GLYCOL POWDER 17 GM PACK PO SCH (08:45)
[2019-01-16] MEDS: PANTOPRAZOLE 40 MG TABLET PO SCH (08:45)
[2019-01-16] MEDS: DOCUSATE SODIUM 100 MG CAPSULE PO SCH (08:45)
[2019-01-16] MEDS: POTASSIUM CHLORIDE 20 MEQ TABLET PO SCH (08:45)
[2019-01-16] MEDS: ASPIRIN EC 81 MG TABLET PO SCH (08:45)
[2019-01-16] MEDS: LISINOPRIL 20 MG TABLET PO SCH (08:50)
[2019-01-16 11:42] VITALS: BP 147/79
== END 2019-01-16 15:35 | disposition home or self-care (01) | DRG 414 ==
LOC: N.TELEN 02:39 → SUATTDRO 04:13 → N.5E 01-13 14:22
PROVIDERS: ADMIT Internal Medicine; ATTEND Hospitalist
PROC: ERCPWSP (ICD-10-PCS; 2019-01-12 08:35)
PROC: LAPCHOL (2019-01-13 11:20)

== ENCOUNTER 2019-05-06 05:14 | Observation (INO) ==
[2019-05-06] MEDS ORDERED: DEXTROSE 50% 25 GM/50 ML VIAL IV PRN (07:39)
[2019-05-06] MEDS ORDERED: MORPHINE 4 MG/1 ML VIAL IV PRN (07:39)
[2019-05-06] MEDS ORDERED: GLUCAGON 1 MG VIAL IM PRN (07:39)
[2019-05-06] MEDS ORDERED: dilTIAZem Drip 125 MG/125 ML PREMIX IV SCH (08:00)
[2019-05-06 08:05] LABS: Basophils # 0.1 10*3/uL (0.0-0.2); Eosinophils # 0.5 10*3/uL (0.0-0.87); Eosinophils % 6.2 % (0.00-10.9); Hematocrit 41.4 VOL% (42.0-52.0); Hemoglobin 13.2 GM/DL (14.0-18.0); Immature Granulocytes % 0.4 %; Immature Granulocytes Absolute 0.03 #; Lymphocytes # 2.3 10*3/uL (1.4-4.0); Lymphocytes % 27.2 % (21.2-54.2); Mean Corpuscular HGB Conc 31.9 GM/DL (32-36); Mean Corpuscular Volume 83.8 FL (87-102); Mean Platelet Volume 9.1 FL (9.6-12.0); Neutrophils % 57.2 % (38.7-73.9); Platelet Count 271 T/CUMM (130-400); Red Blood Count 4.94 MC/CUMM (3.8-5.5); Red Cell Distribution Width 13.2 % (9.3-17.3); White Blood Count 8.4 T/CUMM (4-12)
[2019-05-06 08:35] LABS: Albumin 3.4 G/DL (3.4-5.0); Bilirubin,Total 0.4 MG/DL (0.2-1.0); Calcium 8.4 MG/DL (8.5-10.1); Osmolality,Calculated 288.8 MOS/KG (273-304); Thyroid Stimulating Hormone 3.25 uIU/ml (0.358-3.74); Total Protein 7.2 G/DL (6.4-8.3)
[2019-05-06] MEDS: INSULIN REGULAR 100 UNIT/ML SUBCUT SCH ×3 (12:10→21:49)
[2019-05-06] MEDS ORDERED: SIMVASTATIN 40 MG TABLET PO SCH (21:00)
[2019-05-06] MEDS ORDERED: GLUCOSAMINE 500 MG TABLET PO SCH (21:00)
[2019-05-06] MEDS ORDERED: LISINOPRIL 20 MG TABLET PO SCH (21:00)
[2019-05-06] MEDS ORDERED: ASPIRIN EC 81 MG TABLET PO SCH (21:00)
[2019-05-06] MEDS ORDERED: PANTOPRAZOLE 40 MG TABLET PO SCH (21:00)
[2019-05-06] MEDS: APIXABAN 5 MG TABLET PO SCH (21:15)
[2019-05-07 06:25] LABS: Basophils # 0.1 10*3/uL (0.0-0.2); Basophils % 0.8 % (0.0-0.8); Eosinophils # 0.6 10*3/uL (0.0-0.87); Eosinophils % 6.7 % (0.00-10.9); Hematocrit 40.2 VOL% (42.0-52.0); Hemoglobin 13.1 GM/DL (14.0-18.0); Immature Granulocytes % 0.2 %; Immature Granulocytes Absolute 0.02 #; Lymphocytes # 2.5 10*3/uL (1.4-4.0); Lymphocytes % 27.9 % (21.2-54.2); Mean Corpuscular HGB Conc 32.6 GM/DL (32-36); Mean Corpuscular Volume 83.1 FL (87-102); Mean Platelet Volume 9.5 FL (9.6-12.0); Monocytes % 7.8 % (1.7-12.7); Neutrophils % 56.6 % (38.7-73.9); Platelet Count 265 T/CUMM (130-400); Red Blood Count 4.84 MC/CUMM (3.8-5.5); Red Cell Distribution Width 13.1 % (9.3-17.3); White Blood Count 8.8 T/CUMM (4-12)
[2019-05-07 06:47] LABS: Albumin 3.3 G/DL (3.4-5.0); Bilirubin,Total 0.6 MG/DL (0.2-1.0); Calcium 8.6 MG/DL (8.5-10.1); Osmolality,Calculated 282.3 MOS/KG (273-304)
[2019-05-07] MEDS: INSULIN REGULAR 100 UNIT/ML SUBCUT SCH ×2 (08:50→14:42)
[2019-05-07] MEDS: APIXABAN 5 MG TABLET PO SCH (08:51)
[2019-05-07 12:21] VITALS: BP 118/70
== END 2019-05-07 14:47 | disposition home or self-care (01) ==
LOC: N.TELEN → SUATTDRO 06:49
PROVIDERS: ADMIT Internal Medicine; ATTEND Internal Medicine